=== PATIENT | male | born 1930 | race Caucasian/White ===

== ENCOUNTER → 2017-02-01 | Outpatient (CLI) | payer OTHER, MEDICARE ==
[~2017-02-01] MED LIST: ALENDRONATE SOD70 MG PO; CENTRUM SILVER1 EAC2 PO; CIPRO500 MG PO; IBUPROFEN 800800 MG PO; NORCO 5-325 TA1 EACH PO; PROSCAR 5MG TABL5 MG PO; TERAZOSIN HCL10 MG PO; TOPROL XL50 MG PO; VITAMIN D1000 UNI1 PO
[2017-02-01 14:43] LABS: HEMATOCRIT 34.9 % (42.0-52.0); HEMOGLOBIN 11.8 gm/dL (14.0-18.0); MCH 31.3 pg (26.0-34.0); MCHC 33.9 g/dL (28.0-37.0); MCV 92.3 fL (80.0-100.0); PLATELET COUNT 159 thou/uL (150-400); RBC 3.78 mil/uL (4.50-6.00); RDW 13.2 % (10.5-14.5); WBC 6.9 thou/uL (4.0-11.0)
[2017-02-01 14:44] LABS: MANUAL DIFF YES
[2017-02-01 15:00] LABS: ALBUMIN 3.6 g/dL (3.4-5.0); ALKALINE PHOSPHATASE 40 U/L (46-116); ANION GAP 5 mmol/L (7-16); BUN 22 mg/dL (7-18); CALCIUM 9.6 mg/dL (8.5-10.1); CHLORIDE 104 mmol/L (98-107); CHOLESTEROL 156 mg/dL (<200); CO2 31 mmol/L (21-32); CREATININE 1.2 mg/dL (0.7-1.3); GLUCOSE 98 mg/dL (74-106); HDL CHOLESTEROL 49 mg/dL (>40); LDL CHOLESTEROL 80 mg/dL (<100); POTASSIUM 4.2 mmol/L (3.5-5.1); SGOT 16 U/L (15-37); SGPT 14 U/L (30-65); SODIUM 140 mmol/L (136-145); TC:HDL 3.2 Ratio (Not establshd); TOTAL BILIRUBIN 0.7 mg/dL (<0.1-1.0); TOTAL PROTEIN 7.1 g/dL (6.4-8.2); TRIGLYCERIDE 138 mg/dL (<150); VLDL 28 mg/dL (<40)
[2017-02-01 15:07] LABS: ABSOLUTE NEUTROPHILS 5.4 thou/uL (1.4-8.2); PLATELET ESTIMATE NORMAL; TOTAL CELL COUNT 100
== END ==
LOC: SEN 09:11
PROVIDERS: Emergency Medicine
DX: M81.8 Other osteoporosis without current pathological fracture (principal); I10 Essential (primary) hypertension; M62.81 Muscle weakness (generalized); M25.512 Pain in left shoulder; M25.511 Pain in right shoulder

== ENCOUNTER 2017-10-01 09:09 | Emergency (ER) | payer OTHER, MEDICARE ==
[~2017-10-01] VITALS: Ht 175.3 cm; Wt 81.2 kg
--- NOTE | ~2017-10-01 | EKG ---
[place] [address] [place] [address] ELECTROCARDIOGRAM REPORT Name: ELSA ELLISON KWASI [id number] Admission: 10/01/17 Attend Phys: Discharge: 10/01/17 Date of : 30 Report #: [id number] THIS REPORT FOR: //name// [facility] ED Test Date: 2017-10-01 Test Time: 09:33:40 Pat Name: ELSA ELLISON Department: Room: Gender: M Senior Reservations Agent: DG : 1930 Requested By: Hayde Chopra Order Number: [id number] MD: Pb Daley Measurements Intervals [place] Rate: 77 P: 8 [place]: 152 QRS: 31 QRSD: 135 T: -12 QT: 417 QTc: 472 Interpretive Statements Sinus rhythm Right bundle branch block Baseline wander in lead(s) V5 Compared to ECG 12/26/2008 10:15:07 Right bundle-branch block now present Electronically Signed On 10-02-2017 13:15:10 CDT by Pb Daley [email or web address] <ELECTRONICALLY SIGNED> By: Pb Daley MD, [facility] 10/02/17 1315 Pb Daley MD, [facility] /EPI
[2017-10-01 10:03] LABS: HEMATOCRIT 35.8 % (42.0-52.0); HEMOGLOBIN 12.1 gm/dL (14.0-18.0); MCH 31.1 pg (26.0-34.0); MCHC 33.7 g/dL (28.0-37.0); MCV 92.2 fL (80.0-100.0); RBC 3.89 mil/uL (4.50-6.00); RDW 13.5 % (10.5-14.5)
[2017-10-01 10:12] LABS: URINE BILIRUBIN NEGATIVE (Negative); URINE BLOOD TRACE (Negative); URINE CLARITY CLEAR; URINE COLOR YELLOW; URINE GLUCOSE-RANDOM* NEGATIVE (Negative); URINE KETONES NEGATIVE (Negative); URINE LEUKOCYTES NEGATIVE (Negative); URINE NITRITE NEGATIVE (Negative); URINE PROTEIN (DIPSTICK) NEGATIVE (Negative); URINE UROBILINOGEN 0.2 E.U./dl (0.2-1.0)
[2017-10-01 10:19] LABS: ANION GAP 10 mmol/L (7-16); BUN 22 mg/dL (7-18); CALCIUM 9.9 mg/dL (8.5-10.1); CHLORIDE 100 mmol/L (98-107); CO2 26 mmol/L (21-32); GLUCOSE 102 mg/dL (74-106); POTASSIUM 4.1 mmol/L (3.5-5.1); SODIUM 136 mmol/L (136-145)
[2017-10-01 10:24] LABS: TROPONIN-I < 0.04 ng/mL (<0.06)
[2017-10-01] MEDS ORDERED: HYDROCODONE-AP1 EAC6 PO (11:12)
== END 2017-10-01 11:30 | disposition home or self-care (01) ==
LOC: ER 09:09
PROVIDERS: Physician Assistant
DX: S20.211A Contusion of right front wall of thorax, initial encounter (principal); R10.11 Right upper quadrant pain; R42 Dizziness and giddiness; Z88.0 Allergy status to penicillin; Z88.1 Allergy status to other antibiotic agents; W01.190A Fall on same level from slipping, tripping and stumbling with subsequent striking against furniture, initial encounter; Y93.89 Activity, other specified; Y92.090 Kitchen in other non-institutional residence as the place of occurrence of the external cause; Y99.8 Other external cause status

== ENCOUNTER 2018-02-13 11:29 | Emergency (ER) | payer OTHER, MEDICARE ==
[~2018-02-13] VITALS: Ht 175.3 cm; Wt 81.2 kg
[~2018-02-13 11:29] MED LIST changes: +HYDROCODONE-AP1 EAC6 PO
[2018-02-13 13:01] VITALS: BP 124/61
== END 2018-02-13 13:14 | disposition home or self-care (01) ==
LOC: ER 11:29
DX: S51.011A Laceration without foreign body of right elbow, initial encounter (principal); Z87.891 Personal history of nicotine dependence; Z88.0 Allergy status to penicillin; Z88.1 Allergy status to other antibiotic agents; W01.0XXA Fall on same level from slipping, tripping and stumbling without subsequent striking against object, initial encounter; Y93.89 Activity, other specified; Y92.89 Other specified places as the place of occurrence of the external cause; Y99.8 Other external cause status

== ENCOUNTER 2018-03-02 16:29 | Emergency (ER) | payer OTHER, MEDICARE ==
[~2018-03-02] VITALS: Ht 175.3 cm; Wt 80.7 kg
[2018-03-02] MEDS ORDERED: BACTROBAN CREAM30 G1 TOP (17:05)
[2018-03-02 17:17] VITALS: BP 128/77
== END 2018-03-02 17:18 | disposition home or self-care (01) ==
LOC: ER 16:29
DX: S51.011D Laceration without foreign body of right elbow, subsequent encounter (principal); Z48.01 Encounter for change or removal of surgical wound dressing; Z90.89 Acquired absence of other organs; Z88.0 Allergy status to penicillin; Z88.1 Allergy status to other antibiotic agents; Z87.891 Personal history of nicotine dependence; X58.XXXD Exposure to other specified factors, subsequent encounter

== ENCOUNTER → 2018-04-04 | Outpatient (CLI) | payer OTHER, MEDICARE ==
[~2018-04-04] VITALS: Ht 165.1 cm; Wt 78.5 kg
[~2018-04-04] MED LIST changes: +BACTROBAN CREAM30 G1 TOP
[2018-04-04 13:24] VITALS: BP 125/66
[2018-04-04 15:32] LABS: URINE BILIRUBIN NEGATIVE (Negative); URINE BLOOD 3+ (Negative); URINE CLARITY CLOUDY; URINE COLOR YELLOW; URINE GLUCOSE-RANDOM* NEGATIVE (Negative); URINE KETONES NEGATIVE (Negative); URINE LEUKOCYTES-REFLEX 2+ (Negative); URINE NITRITE-REFLEX NEGATIVE (Negative); URINE PROTEIN (DIPSTICK) 2+ (Negative); URINE SPECIFIC GRAVITY 1.025 (1.005-1.035); URINE UROBILINOGEN 0.2 E.U./dl (0.2-1.0)
[2018-04-04 15:36] LABS: ABSOLUTE NEUTROPHILS 6.3 thou/uL (1.4-8.2); BASOPHILS 0.5 % (0.0-2.0); HEMATOCRIT 36.3 % (42.0-52.0); HEMOGLOBIN 12.3 gm/dL (14.0-18.0); LYMPHOCYTES 9.6 % (24.0-44.0); MCH 30.8 pg (26.0-34.0); MCHC 33.9 g/dL (28.0-37.0); MCV 90.9 fL (80.0-100.0); MONOCYTES 11.5 % (1.0-8.0); PLATELET COUNT 206 thou/uL (150-400); POLYS 77.4 % (36.0-66.0); RDW 13.5 % (10.5-14.5); WBC 8.2 thou/uL (4.0-11.0)
[2018-04-04 15:38] LABS: CASTS None Seen /LPF (None Seen); CRYSTALS None Seen /LPF (None Seen); SQUAMOUS None Seen /LPF (0-3); URINE WBC-REFLEX >25 Many /HPF (0-5)
[2018-04-04 15:39] LABS: URINE RBC 3-10 Few /HPF (0-2)
[2018-04-04 15:46] LABS: ALBUMIN 3.2 g/dL (3.4-5.0); ANION GAP 5 mmol/L (7-16); BUN 24 mg/dL (7-18); CALCIUM 9.2 mg/dL (8.5-10.1); CHLORIDE 100 mmol/L (98-107); CHOLESTEROL 148 mg/dL (<200); CO2 29 mmol/L (21-32); CREATININE 1.1 mg/dL (0.7-1.3); GLUCOSE 129 mg/dL (74-106); HDL CHOLESTEROL 56 mg/dL (>40); LDL CHOLESTEROL 77 mg/dL (<100); POTASSIUM 4.2 mmol/L (3.5-5.1); SGOT 20 U/L (15-37); SGPT 23 U/L (30-65); SODIUM 134 mmol/L (136-145); TC:HDL 2.6 Ratio (Not establshd); TOTAL BILIRUBIN 0.4 mg/dL (<0.1-1.0); TRIGLYCERIDE 77 mg/dL (<150); VLDL 15 mg/dL (<40)
[2018-04-04 15:50] LABS: SERUM ASSESSMENT Clear
== END ==
LOC: SEN 11:46
PROVIDERS: Emergency Medicine
DX: R30.0 Dysuria (principal); M62.81 Muscle weakness (generalized); R29.6 Repeated falls; R53.83 Other fatigue; R35.0 Frequency of micturition; R31.9 Hematuria, unspecified; R97.20 Elevated prostate specific antigen [PSA]; Z85.46 Personal history of malignant neoplasm of prostate; Z87.891 Personal history of nicotine dependence; Z79.899 Other long term (current) drug therapy

== ENCOUNTER → 2018-04-25 | Outpatient (CLI) | payer OTHER, MEDICARE ==
[~2018-04-25] VITALS: Ht 165.1 cm; Wt 79.5 kg
[2018-04-25 13:43] VITALS: BP 125/62
== END ==
LOC: CAT 08:51 → SEN 08:51
DX: R51 Headache (principal); Z91.81 History of falling

== ENCOUNTER 2018-07-20 18:23 | Inpatient (IN) | payer OTHER, MEDICARE ==
[~2018-07-20] VITALS: Ht 175.3 cm; Wt 79.5 kg
--- NOTE | ~2018-07-20 | HC ---
[facility] [place] [address] CONSULTATION Name: SCOTELSA VILLALPANDO Room #: 353-P [facility] IN .R.#: [id number] Admission: 07/22/18 Attend Phys: Rony Zeng MD Discharge: Date of : 30 Report #: [id number] THIS REPORT FOR: //name// CC: Rony Zeng Dalton Akkulugari DATE OF SERVICE: 07/25/2018 HISTORY OF PRESENT ILLNESS: The patient is an 88-year-old white male, who was admitted having a syncopal episode at home. He was initially unconscious, had right upper and right lower extremity weakness, and had emesis. CT of the head was negative. He had a right upper lobe infiltrate. He was diagnosed with severe sepsis. He was diagnosed with pneumonia, possible aspiration. He has had improvement as far as right upper and right lower extremity movement. He is being followed by Pulmonary Medicine as well as Infectious Disease and Geriatrics. He has had problems with urinary retention and has a Crawford catheter placed. We are seeing him in rehabilitation medicine consultation. He does have significant dysphagia and is on honey thickened liquid diet with mechanical soft. PAST MEDICAL HISTORY: Includes rotator cuff surgery bilaterally, TURP x 2, cataract surgery, stapedectomy, left ear; rheumatic fever as a child, aortic aneurysm, right knee surgery, hypertension, GERD, prostate CA, and bladder CA. MEDICATIONS: Please see the full medication listing. This includes vitamins, herbals, and supplements. ALLERGIES: THE PATIENT IS ALLERGIC TO PENICILLIN. HABITS: Tobacco: Former smoker 1 pack per day cigarettes, quit greater than a year ago. Alcohol: There is note of some past usage. SOCIAL HISTORY: He lives with his , in house, no steps in, 12 inside. Premorbid cane ambulator. is there and involved and there is an involved daughter, who lives in [place]. REVIEW OF SYSTEMS: No complaints of chest pain, shortness of breath, abdominal discomfort, would like to be off the O2 when possible. He notes he is moving the right arm and right leg better without focal weakness. He is right-handed. He denies any focal extremity pain complaints. He did have some urinary frequency premorbidly per the . PHYSICAL EXAMINATION: GENERAL: The patient is an 88-year-old white male in no obvious distress. He is very pleasant, a little hard of hearing, but quite alert, appropriate. HEENT: Appeared to be benign. [address] [address] CONSULTATION Name: ELSA ELLISON Room #: 353-P [facility] IN .R.#: [id number] Admission: 07/22/18 Attend Phys: Rony Zeng MD Discharge: Date of : 30 Report #: [id number] NEUROLOGIC: Cranial nerves were grossly intact. He is on nasal prong O2, currently on 2 liters. There is some latency to his responses. Functional range of motion of both upper and lower extremities. Strength appeared to be symmetric, I would grade it at a 4 to 4-/5. DTRs are trace to 1. He does have the indwelling Crawford catheter. He has improved as far as basic functional mobility and now is mod assist, sit to stand and ambulated 200 feet, min assist with a front-wheeled walker. ASSESSMENT: The patient is an 88-year-old white male with the following problem list: 1. Initial unconsciousness with right upper and right lower extremity weakness. 2. Significant dysphagia, currently on honey thickened liquid. 3. Severe sepsis. 4. Possible aspiration pneumonia. 5. Supraventricular tachycardia, was given IV Lopressor. 6. Acute respiratory failure with hypoxia. 7. Question of syncope. 8. Hypertension. 9. Urinary retention with indwelling Crawford catheter. 10. Past history of bladder cancer and prostate cancer with prior transurethral resection of the prostate x 2. PLAN: The patient is a candidate for an acute in-hospital inpatient rehabilitation stay. The patient and appear amenable. Complained and transferred to the acute in-hospital inpatient rehabilitation alvares when medically cleared. By: [id number] Jeff Stevens MD /[facility]
[2018-07-20 18:24] VITALS: BP 139/61
[2018-07-20 18:46] LABS: HEMATOCRIT 38.4 % (42.0-52.0); HEMOGLOBIN 12.8 gm/dL (14.0-18.0); MCH 30.2 pg (26.0-34.0); MCHC 33.4 g/dL (28.0-37.0); MCV 90.5 fL (80.0-100.0); RBC 4.24 mil/uL (4.50-6.00); RDW 14.2 % (10.5-14.5); WBC 13.5 thou/uL (4.0-11.0)
[2018-07-20 18:53] LABS: ANION GAP 9 mmol/L (7-16); BUN 18 mg/dL (7-18); CALCIUM 9.5 mg/dL (8.5-10.1); CHLORIDE 99 mmol/L (98-107); CO2 28 mmol/L (21-32); CREATININE 1.1 mg/dL (0.7-1.3); GLUCOSE 125 mg/dL (74-106); POTASSIUM 4.2 mmol/L (3.5-5.1); SODIUM 136 mmol/L (136-145)
[2018-07-20 18:57] LABS: APTT 23.3 Seconds (24.5-32.8); INR 1.1; PROTIME 11.2 Seconds (9.3-11.4)
[2018-07-20 19:02] LABS: ALBUMIN 3.6 g/dL (3.4-5.0); DIRECT BILIRUBIN 0.2 mg/dL (<0.1-0.3); LIPASE 61 U/L (73-393); SGOT 16 U/L (15-37); SGPT 14 U/L (30-65); TOTAL BILIRUBIN 0.7 mg/dL (<0.1-1.0); TOTAL PROTEIN 7.3 g/dL (6.4-8.2); TROPONIN-I <0.06 ng/mL (<0.06)
[2018-07-20 20:57] VITALS: BP 132/63
[2018-07-20 21:27] VITALS: BP 112/65
[2018-07-20 21:55] VITALS: BP 107/52
[2018-07-21] VITALS: BP 111/60
[2018-07-21 01:39] LABS: URINE BILIRUBIN NEGATIVE (Negative); URINE BLOOD TRACE (Negative); URINE CLARITY CLEAR; URINE COLOR YELLOW; URINE GLUCOSE-RANDOM* NEGATIVE (Negative); URINE KETONES NEGATIVE (Negative); URINE NITRITE-REFLEX NEGATIVE (Negative); URINE PROTEIN (DIPSTICK) NEGATIVE (Negative); URINE SPECIFIC GRAVITY 1.015 (1.005-1.035); URINE UROBILINOGEN 0.2 E.U./dl (0.2-1.0)
[2018-07-21 01:40] LABS: URINE LEUKOCYTES-REFLEX NEGATIVE (Negative)
--- NOTE | 2018-07-21 01:41 | NUR ---
PT STATES HE DOES NOT TAKE ANY HOME MEDICATIONS. HE STATES HE STOPPED TAKING HIS BP MEDICATIONS BUT HAS NOT INFORMED HIS PCP. UPDATED ANGIOGRAPHER TORNADO CHASER REGARDING HOME MEDS.
--- NOTE | 2018-07-21 03:22 | NUR ---
RECEIVED REPORT FROM ER NURSE. PT ADMITTED TO ROOM 353. ADMISSION HX AND ASSESSMENT COMPLETED. PT IS ABLE TO ANSWER ORIENTATION QUESTIONS, BUT HAS PERIODS OF FORGETFULNESS DURING THE NIGHT. DENIES ANY N/V. DENIES ANY PAIN. SOA W/ EXERTION. VSS. FALL PRECAUTIONS IN PLACE. POC DISCUSSED WITH PT. PROGRESSING SLOWLY TOWARD POC GOALS. WILL CONTINUE TO MONITOR FURTHER.
[2018-07-21 04:15] VITALS: BP 106/59
--- NOTE | 2018-07-21 07:22 | NUR ---
PT HAVING DIFFICULTY VOIDING. BLADDER SCANNED, >400ML IN BLADDER. NOTIFIED GEAR KEEPER DISK RECOATER. ORDER RECEIVED TO STRAIGHT CATH X1. STRAIGHT CATHED AND EMPTIED 545ML FROM BLADDER. UPDATED DAY SHIFT RN.
[2018-07-21 07:49] VITALS: BP 105/50
[2018-07-21 11:46] VITALS: BP 108/53
[2018-07-21 16:00] VITALS: BP 117/56
[2018-07-21 19:45] VITALS: BP 128/55
--- NOTE | 2018-07-21 19:51 | NUR ---
care of pt assumed this am @ 0700. pt received a straight cath per noc rn this am. pt aox4, forgetful, needing many reminders about conversations he had w/ staff hours ago. pt suprised by need to be hospitalized as he states he feels fine and would like to go home tomorrow. pt encourage to increase activity today, so pt walked about nrsg station before breakfast and lunch today w/o oxygen, w/o dyspnea and w/ a steady, balanced and coordinated gait. pt sat up in his chair for all clear liquids meals today. pt has denied soa today. vss. pt visited by his , daughter and members from their sabianist. pt noted to be point hope ira, but uses one hearing aid to solve that issue. pt incontinent of stool today, but taken to the [facility] to have a stool on the toliet. pt still unable to void per urinaly late this afternoon, after receiving ivf and po liquids, bladder scanned w/ ~350 cc. ayala cathater placed per dr. idamond's order. pt relieved to know that he will not have to have another cathater inserted tonight and that he can just sleep through the night.
--- NOTE | 2018-07-21 22:13 | EKG ---
[address] [address] ELECTROCARDIOGRAM REPORT Name: ELSA ELLISON KWASI Room #: 353-[facility] M.R.#: [id number] Admission: 07/20/18 Attend Phys: Yesy Flannery Discharge: Date of : 30 Report #: [id number] THIS REPORT FOR: //name// [facility] ED Test Date: 2018-07-20 Test Time: 18:33:24 Pat Name: ELSA ELLISON Department: Room: [facility] Gender: M Protector Plate Attacher: LUCERO : 1930 Requested By: Elsa Mccollum Order Number: [id number] MD: Mickey Cotto Measurements Intervals [place] Rate: 94 P: 15 [place]: 142 QRS: 32 QRSD: 127 T: -16 QT: 363 QTc: 454 Interpretive Statements Sinus rhythm with frequent pacs Right bundle branch block Baseline wander in lead(s) II Compared to ECG 10/01/2017 09:33:40 Sinus rhythm no longer present Electronically Signed On 07-21-2018 22:12:54 STRIPPER AND PRINTER by Mickey Cotto [email or web address] <ELECTRONICALLY SIGNED> By: Mickey Cotto MD 07/21/18 2212 32 32 Mickey Cotto MD /EPI
--- NOTE | 2018-07-21 22:14 | EKG ---
[address] [address] ELECTROCARDIOGRAM REPORT Name: ELSA ELLISON KWASI Room #: 353-[facility] M.R.#: [id number] Admission: 07/20/18 Attend Phys: Yesy Flannery Discharge: Date of : 30 Report #: [id number] THIS REPORT FOR: //name// [facility] ED Test Date: 2018-07-20 Test Time: 20:08:56 Pat Name: ELSA ELLISON Department: Room: 353 Gender: M Customer Advocate: Michael QUINONES : 1930 Requested By: Elsa Mccollum Order Number: [id number] MD: Mickey Cotto Measurements Intervals [place] Rate: 123 P: 45 [place]: 147 QRS: 34 QRSD: 117 T: -71 QT: 330 QTc: 472 Interpretive Statements Sinus tachycardia Multiple premature atrial complexes and atrial tachycardia Right bundle branch block Repolarization abnormality, prob rate related Compared to ECG 10/01/2017 09:33:40 Early repolarization now present Sinus rhythm no longer present Electronically Signed On 07-21-2018 22:13:56 JEWELRY MANAGER by Mickey Cotto [email or web address] <ELECTRONICALLY SIGNED> By: Mickey Cotto MD 07/21/18 2213 07 07 Mickey Cotto MD /EPI
--- NOTE | 2018-07-22 03:21 | NUR ---
ASSUMED PT CARE AROUND 1900. PT BECOMES MORE FORGETFUL AND HAS PERIODS OF CONFUSION AT NIGHT. RESTLESS IN THE BED AT TIMES, PULLING AT LINES. ANAI TO DD. VSS. PLACED ON 2-3L NC DURING THE NIGHT, DUE TO O2 SATS DROPPING WHILE HE WAS SLEEPING. DENIES ANY PAIN OR SOA. FALL PRECAUTIONS IN PLACE. PROGRESSING SLOWLY TOWARD POC GOALS. WILL CONTINUE TO MONITOR FURTHER.
[2018-07-22 04:07] VITALS: BP 111/46
[2018-07-22 05:22] LABS: ABSOLUTE NEUTROPHILS 10.1 thou/uL (1.4-8.2); BASOPHILS 0.2 % (0.0-2.0); EOSINOPHILS 0.3 % (0.0-3.0); LYMPHOCYTES 5.1 % (24.0-44.0); MCH 30.2 pg (26.0-34.0); MCHC 33.5 g/dL (28.0-37.0); MCV 90.1 fL (80.0-100.0); PLATELET COUNT 147 thou/uL (150-400); POLYS 86.4 % (36.0-66.0); RBC 3.33 mil/uL (4.50-6.00); RDW 14.4 % (10.5-14.5); WBC 11.7 thou/uL (4.0-11.0)
[2018-07-22 05:28] LABS: HEMOGLOBIN 10.1 gm/dL (14.0-18.0)
[2018-07-22 05:34] LABS: CALCIUM 8.4 mg/dL (8.5-10.1); CREATININE 0.9 mg/dL (0.7-1.3); POTASSIUM 3.7 mmol/L (3.5-5.1)
[2018-07-22 07:34] VITALS: BP 113/55
--- NOTE | 2018-07-22 10:39 | NUR ---
PT ADMITTED RELATED WEAKNESS, PNEUMONIA. CM REVIEWED CHART AND SPOKE WITH CARE TEAM. CM MET WITH PT AT BEDSIDE THIS DAY. PT IS A&O X4 CM ROLE IBTRODUCED. PT INDICATED HE LIVES IN A RANCH STYLE HOUSE WITH HIS SPOUSE WITH 2 STEPS TO ENTER AND NO STEPS INSIDE. 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 PT INDICATED NO HH HX. PT INDICATED HE HAD SEEN DR MIRANDA ONCE BUT [facility] PT STATED HE PLANS TO RETURN HOME ONCE MEDICALLY STABLE. CM TO FOLLOW INDICATED WITH DC PLANNING.
[2018-07-22 11:49] VITALS: BP 102/60
[2018-07-22 16:58] VITALS: BP 130/59
[2018-07-22 19:45] VITALS: BP 132/64
[2018-07-23 04:38] VITALS: BP 129/65
--- NOTE | 2018-07-23 04:53 | NUR ---
PATIENT IS ALERT AND ORIENTED. PATIENT IS ON 2L NC. PATIENT WANT TO WALK BUT IT WAS REALLY DIFFICULT TO EVEN GET TO THE EDGE OF THE BED. PATIENT DID NOT AMBULATE THIS SHIFT BUT STILL WANTS TO. PATIENT IS [place]. PATIENT DENIES PAIN OR NAUSEA. PATIENT IS TIME ONE TO TWO ASSIST WITH A WALKER, GAIT BELT AND OXYGEN. PATIENT LBM WAS THE 31ST. PATIENT IS A FIB. PATIENT IS SOMETIME TACHICARDIC. PATIENT IS HONEY THICK LIQUIDS AND HEART HEALTHY MACHANICAL GROUND DIET. PATIENT HAS A OSPINA DUE TO RETENTION. PATIENT IS RESTING COMFORTABLEY IN BED. WCM. PATIENT IS PROGRESSING TO GOALS.
[2018-07-23 05:48] LABS: BASOPHILS 0.3 % (0.0-2.0); EOSINOPHILS 0.9 % (0.0-3.0); HEMATOCRIT 29.9 % (42.0-52.0); HEMOGLOBIN 10.3 gm/dL (14.0-18.0); LYMPHOCYTES 5.4 % (24.0-44.0); MCH 30.8 pg (26.0-34.0); MCHC 34.3 g/dL (28.0-37.0); MCV 89.6 fL (80.0-100.0); MONOCYTES 8.3 % (1.0-8.0); PLATELET COUNT 149 thou/uL (150-400); POLYS 85.1 % (36.0-66.0); RBC 3.33 mil/uL (4.50-6.00); RDW 14.2 % (10.5-14.5); WBC 9.4 thou/uL (4.0-11.0)
[2018-07-23 06:02] LABS: CALCIUM 8.5 mg/dL (8.5-10.1); CREATININE 0.9 mg/dL (0.7-1.3); POTASSIUM 3.7 mmol/L (3.5-5.1)
[2018-07-23 07:51] VITALS: BP 123/66
[2018-07-23 11:07] VITALS: BP 98/42
[2018-07-23 15:31] VITALS: BP 120/61
--- NOTE | 2018-07-23 17:52 | NUR ---
PT IS ALERT AND ORIENTED X4. PLEASANT. LUNGS ARE CLEAR TO DIMINISHED. UP TO CHAIR TODAY. AT BEDSIDE FOR SUPPORT. TOLERATING MECH SOFT AND THICKEN LIQUIDS. ABDOMEN IS ROUND. ACTIVE BOWEL SOUNDS X4 QUADRANTS. NSR ON THE CRYPTOLOGIC TECHNICIAN. ASSSIST X1 FOR AMBULATION WITH NURSING SUPPORT. OSPINA TO DD WITH NEEL URINE PRESENT. DENIES ANY PAIN. WILL CONTINUE TO ASSESS AND MONITOR PER NURSING CALL LIGHT WITHIN REACH IF NEEDS ASSISTANCE
[2018-07-23 20:20] VITALS: BP 126/84
[2018-07-24 04:20] VITALS: BP 119/78
--- NOTE | 2018-07-24 05:01 | NUR ---
ASSUMED PT CARE AROUND 0. A&OX4, FORGETFUL. PT SLEPT MOST OF THE NIGHT. RESP EVEN AND UNLABORED. OSPINA TO DD WITH GOOD URINE OUTPUT. IVF INFUSING ORDERED. VSS. AFEBRILE. GIVEN IV LOPRESSOR ONCE PER TELECOMMUNICATIONS SPECIALIST ORDER FOR TACHYCARDIA. HR IMPROVED. FALL PRECAUTIONS IN PLACE. PROGRESSING SLOWLY TOWARD POC GOALS. WILL CONTINUE TO MONITOR FURTHER.
[2018-07-24 07:45] VITALS: BP 127/74
--- NOTE | 2018-07-24 09:29 | NUR ---
PHYSICIAN CALLS: PT HR >130 FOR ABOUT 18 MIN, THEN ALERTED HE'S IN SVT STARTING AT [address] GRAHAM TWICE FOR ALERT, MEDS, CARDIOLOGY CONSULT, STATE EKG BEING DONE, PT ASYMPTOMATIC OTHER THAN PAIN IN HIS R KNEE, DID VALSALVA MANUEVERS WHICH ONLY BROUGHT HR DOWN TO 120-130S, PT DOES BECOME HIGHLY ANXIOUS IF B/P TAKEN AGAIN OR HIS HR IS DISCUSSED. ASSURED HIM HE'S IN GOOD HANDS HERE WITH HEART BEING MONITORED. AWAITING FURTHER ORDERS
--- NOTE | 2018-07-24 09:31 | NUR ---
HR 169 YESTERDAY REPORTS OFIV LOPRESSOR GIVEN. CALLED BACK AND HE ASKED FOR ME TO RETURN CALL SHORTLY
[2018-07-24 11:52] VITALS: BP 80/40
--- NOTE | 2018-07-24 13:20 | EKG ---
[address] [place] [address] ELECTROCARDIOGRAM REPORT Name: ELSA ELLISON KWASI Room #: 353-P [facility] IN M.R.#: [id number] Admission: 07/22/18 Attend Phys: Rony Zeng MD Discharge: Date of : 30 Report #: [id number] THIS REPORT FOR: //name// [facility] Test Date: 2018-07-24 Test Time: 09:32:05 Pat Name: ELSA ELLISON Department: Room: 353 P Gender: M Circuit Court Judge: Irasema DE JESUS : 1930 Requested By: Yesy Flannery Order Number: [id number] MD: Mickey Cotto Measurements Intervals Lane Rate: 128 P: [place]: QRS: 45 QRSD: 129 T: -47 QT: 316 QTc: 461 Interpretive Statements Atrial fibrillation Right bundle branch block Borderline ST depression, lateral leads Compared to ECG 07/20/2018 20:08:56 ST (T wave) deviation now present Sinus tachycardia no longer present Atrial premature complex(es) no longer present Early repolarization no longer present Electronically Signed On 07-24-2018 13:20:06 SUPERVISOR LUMP ROOM by Mickey Cotto [email or web address] <ELECTRONICALLY SIGNED> By: Mickey Cotto MD 07/24/18 1320 Mickey Cotto MD /EPI
--- NOTE | 2018-07-24 13:42 | NUR ---
CARE TEAM IS RECOMMENDING POST ACUTE CARE STAY. CM MET WITH PT, SPOUSE, AND DTR AT BEDSIDE THIS DAY AND PROVIDED SNF LIST. SOUSE IS TO VISIT [facility] AND TOUR. CM INDICATED THAT POSSIBLE DC TOMORROW. CM TO FOLLOW UP WITH PT, SPOUSE, AND DTR REGARDING PREFERENCE OF FACILITIES.
--- NOTE | 2018-07-24 15:02 | NUR ---
pt and spouse also asked tht referral be sent to [facility] for review. cm sent referral
[2018-07-24 16:05] VITALS: BP 96/43
[2018-07-24 20:20] VITALS: BP 122/58
--- NOTE | 2018-07-25 03:20 | NUR ---
ASSUMED PT CARE AROUND 1900. A&OX4, FORGETFUL. C/O RT KNEE PAIN. TYLENOL GIVEN. PT SAT UP IN CHAIR EARLIER IN THE SHIFT. TOLERATED WELL. ONCE TRANSFERED BACK TO BED, PT SLEPT MOST OF THE NIGHT. RESP EVEN AND UNLABORED. VSS. OSPINA TO DD WITH GOOD URINE OUTPUT. FALL PRECAUTIONS IN PLACE. PROGRESSING TOWARD POC GOALS. WILL CONTINUE TO MONITOR FURTHER.
[2018-07-25 04:30] VITALS: BP 134/84
[2018-07-25 07:16] VITALS: BP 94/73
[2018-07-25 11:13] VITALS: BP 103/49
--- NOTE | 2018-07-25 13:36 | NUR ---
DISCHARGE PLANNING. POST ACUTE CARE RECOMMENDED AT DISCHARGE. REFERRAL FAXED TO [facility] FOR DC NEEDS. CALL PLACED TO FATUMA [facility] TO NOTIFY OF PATIENTS DC NEEDS AND ANTICIPATED DISCHARGE FOR TOMORROW. FATUMA TO REVIEW AND NOTIFY ONCE COMPLETE. UNIT CM/SW AWARE. FOLLOWING TO ASSIST.
--- NOTE | 2018-07-25 13:44 | NUR ---
CM FOLLOWED UP WITH PT AND SPOUSE TODAY TO SEE IF THEY HAD [facility]. SPOUSE REQUESTED 5N CONSULT AND THAT REFERRAL BE SENT TO [facility] OP IF NOT APPROPRIATE FOR 5N. DC STEERSMAN TO FAX REFERRAL TO [facility]. CONSULT WAS SENTERED FOR 5N. CM TO FOLLOW INDICATED WITH DC PLANNING.
[2018-07-25 15:20] VITALS: BP 97/53
--- NOTE | 2018-07-25 15:30 | NUR ---
PT WEAK..PLANS TO HAVE 5N EVAL AND HOPEFULLY TX THERE TOMORROW..ENCOURAGED TO SIT IN CHAIR...
--- NOTE | 2018-07-25 18:09 | NUR ---
PATIENT SEEN BY DR. ROTH THIS DATE. PATIENT IS A GOOD REHAB CANDIDATE. PLAN FOR ACUTE REHAB ADMISSION 07/26/17 IF PATIENT IS MEDICALLY STABLE AND READY FOR DISCHARGE FROM ACUTE MEDICAL CARE. THANK YOU FOR THIS REFERRAL.
[2018-07-25 19:05] VITALS: BP 120/52
[2018-07-25 23:34] VITALS: BP 129/59
--- NOTE | 2018-07-26 03:02 | NUR ---
patient is alert and oriented. patient is [place]. patient can be forgetful. patient is anxious at times. patient is 1-2 assist with walker. patient is afib to [facility] c pacs on tele. patient is on honey thick liquids and tolerates well. patient has a ayala. lbm was the 2nd. patient is pending transfer to [address] [place] [address]. patients heart rate has improved with the metoprolol. patient is on 2l nc. patient is resting comfortabley in bed. wcm. patient is progressing to goals.
[2018-07-26 03:51] VITALS: BP 136/82
[2018-07-26 05:40] LABS: ABSOLUTE NEUTROPHILS 6.4 thou/uL (1.4-8.2); BASOPHILS 0.4 % (0.0-2.0); EOSINOPHILS 2.3 % (0.0-3.0); HEMATOCRIT 30.7 % (42.0-52.0); HEMOGLOBIN 10.5 gm/dL (14.0-18.0); LYMPHOCYTES 8.8 % (24.0-44.0); MCH 30.6 pg (26.0-34.0); MCHC 34.1 g/dL (28.0-37.0); MCV 89.5 fL (80.0-100.0); MONOCYTES 10.8 % (1.0-8.0); PLATELET COUNT 197 thou/uL (150-400); POLYS 77.7 % (36.0-66.0); RBC 3.43 mil/uL (4.50-6.00); RDW 14.3 % (10.5-14.5); WBC 8.2 thou/uL (4.0-11.0)
[2018-07-26 07:32] VITALS: BP 144/69
[2018-07-26] MEDS ORDERED: LEVAQUIN 500 M500 M2 PO (08:55)
[2018-07-26] MEDS ORDERED: FLOMAX0.4 MG PO (08:55)
[2018-07-26] MEDS ORDERED: MUCINEX600 MG PO (08:56)
--- NOTE | 2018-07-26 09:00 | NUR ---
[facility] INDICATED THAT THEY ARE ABLE TO ACCEPT PT FOR ADMISSION THIS DAY. [facility] ALSO INDICATED THEY WOULD BE ABLE TO ACCEPT PT IF 5N WASN'T AN OPTION. CM TO INFORM PT AND SPOUSE AND FOLLOW INDICATED WITH DC PLANNING.
--- NOTE | 2018-07-26 09:47 | NUR ---
5 N CONSULT RECEIVED 07/25/[address] ROTH ASSESSED PATIENT ON 07/25/18. PATIENT DEMONSTRATES RIGHT UE/RIGHT LE WEAKNES, DYSPHAGIA, AND MEDICAL COMPLEXITY. SEE DR. ROTH'S CONSULT FOR DETAILS. BUDGET MANAGER MEETS WITH PATIENT THIS DATE TO DISCUSS RECOMMENDATIONS/REQUIREMENTS FOR AN ACUTE INPATIENT REHAB UNIT STAY. PATIENT PROVIDED WITH AN ORIENTATION BROCHURE. PATIENT IS AGREEABLE TO [address] [place] [address] STAY. PATIENT REPORTS RESIDING IN A RANCH STYLE HOME WITH HIS SPOUSE. STATES HE WAS INDEPENDENT WITH BASIC ADL'S AND MODIFIED INDEPENDENT WITH A QUAD CANE AND OCCASIONALLY WITH USE OF A WALKER FOR HOUSEHOLD AND SHORT COMMUNITY DISTANCES. REPORTS HE SHARES IADL'S WITH HIS SPOUSE. 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 PATIENT REPORTS HIS GOAL IS TO GET UP AND GET WALKING, TO BE ABLE TO GET THE MAIL AND SORT THROUGH IT. STATES HE DESIRES TO RETURN HOME WITH HIS SPOUSE. ANTICIPATE PATIENT WILL ADMIT TO [address] [place] [address] LATER THIS DATE. THANK YOU FOR THE REFERRAL.
--- NOTE | 2018-07-26 11:01 | NUR ---
PT WAS ACEPTED TO 5N THIS DAY. CM NOTIFIED SPOUSE AND DTR.
--- NOTE | 2018-07-28 22:00 | EKG ---
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 : 1930 Requested By: Johanna Mcintyre Order Number: [id number] MD: Mickey Cotto Measurements Intervals [place] Rate: 124 P: 77 KS: 136 QRS: 38 QRSD: 128 T: 2 QT: 325 QTc: 467 Interpretive Statements Sinus tachycardia Multiple PACs Right bundle branch block Compared to ECG 07/24/2018 09:32:05 Atrial fibrillation no longer present ST (T wave) deviation no longer present Electronically Signed On 07-28-2018 22:00:33 KNIT TUBING DYER by Mickey Cotto [email or web address] <ELECTRONICALLY SIGNED> By: Mickey Cotto MD 07/28/182199 20 20 Mickey Cotto MD /EPI
--- NOTE | 2018-07-29 19:21 | HC ---
[facility] [place] [address] CONSULTATION Name: SCOTELSA VILLALPANDO Room #: 353-P [facility] IN M.R.#: [id number] Admission: 07/22/18 Attend Phys: Rony Zeng MD Discharge: 07/26/18 Date of : 30 Report #: [id number] THIS REPORT FOR: //name// [facility] REFERRAL PHYSICIAN: Dr. Flannery. REASON FOR REFERRAL: Dyspnea, possible pneumonia. HISTORY OF PRESENT ILLNESS: The patient is an 88-year-old gentleman who was brought to the Emergency Room with a syncopal episode. Has concerns for possible pneumonia. A pulmonary consultation was requested. According to the family, they found him with spillage of liquids around his mouth. Then, he slumped over in his easy chair. There were concerns for emesis, possible nausea, vomiting, although the family denies. The family knows the patient had complained of abdominal discomfort a few days ago. When he was taken to the Emergency Room, he did have a projectile vomiting. He had a low-grade fever of 100.2 degrees Fahrenheit. Chest x-ray performed shows questionable right lower lung field infiltrates. Currently, he is awake, alert, in no apparent distress. Denies any dyspnea, chest pain, productive cough. PAST MEDICAL HISTORY: Notable for aortic aneurysm, rheumatic fever as a child, hypertension, gastroesophageal reflux disease, prostate cancer and bladder cancer. PAST SURGICAL HISTORY: Rotator cuff surgery, cataract surgery, TURP, left middle ear surgery and right knee surgery. ALLERGIES: TO PENICILLIN, WHICH REACTION NOT SPECIFIED INCLUDING TETRACYCLINE, REACTIONS NOT SPECIFIED. HOME MEDICATIONS: Include ibuprofen, Tylenol, hydrocodone, recent course of Cipro, Fosamax, Proscar, Toprol XL, Centrum Silver and vitamin D. FAMILY HISTORY: Noncontributory. SOCIAL HISTORY: Has smoked in the past for over 40 years, quit 20 years ago. He has drank in the past, but quit years ago. REVIEW OF SYSTEMS: As mentioned above, otherwise 10-point system review negative. [facility] [address] [place] [address] CONSULTATION Name: ELSA ELLISON Room #: 353-P [facility] IN M.R.#: [id number] Admission: 07/22/18 Attend Phys: Rony Zeng MD Discharge: 07/26/18 Date of : 30 Report #: [id number] PHYSICAL EXAMINATION: GENERAL: He is awake, alert, in no apparent distress. VITAL SIGNS: Temperature is 98 degrees Fahrenheit, pulse is 60, respiratory rate is 18, blood pressure 108/53 mmHg and saturation 93%. HEENT: Normocephalic, atraumatic. NECK: Supple, without any lymphadenopathy or thyromegaly. CHEST: Breath sounds are fair bilaterally with a few scattered crackles in the bases, but no wheezes. CARDIOVASCULAR: Normal S1, S2. There are no murmurs or gallop. There is no JVD. There is no carotid bruit. Pulses 2+/4+ bilaterally. ABDOMEN: Soft, nontender, no organomegaly or masses felt. GENITOURINARY: Deferred. RECTAL: Deferred. EXTREMITIES: There is no edema, cyanosis or clubbing. LABORATORY DATA: Portable chest x-ray again shows questionable right perihilar infiltrates, possible mild left lower lobe infiltrates. Left hemidiaphragm is elevated. Lung volumes are decreased bilaterally. CT head was negative for any acute ischemic changes. Procalcitonin level is 0.8. Lactic acid is 1.1. Abdominal ultrasound was a limited exam. Otherwise, no significant findings. Electrolytes are normal. Liver enzymes are grossly unremarkable. WBC 13,500. Albumin 3.6. IMPRESSION: 1. Near syncopal episode in this 88-year-old white male with an apparent history of nausea and vomiting. Chest x-ray is grossly unremarkable, but there is some suggestion of possible right perihilar infiltrates, perhaps left lower lobe infiltrates. Possible aspiration pneumonia is considered. Note the patient is febrile. Alternatively, viral syndrome is also considered. 2. Syncopal episode. 3. Recent abdominal discomfort. We will defer workup to the primary team. 4. Hypertension. 5. History of prostate cancer, bladder cancer, status post transurethral resection of prostate. 6. History of aortic aneurysm. 7. Rheumatic fever as a child. 8. Gastroesophageal reflux disease. RECOMMENDATION: I think it is reasonable to continue broad spectrum antibiotics to cover possible aspiration pneumonia. Follow up chest x-ray. DVT and GI prophylaxis is recommended. Would also recommend follow up GI symptoms, may need further workup. DVT and GI prophylaxis is indicated. [address] [address] CONSULTATION Name: ELSA ELLISON Room #: 353-P [facility] IN ..#: [id number] Admission: 07/22/18 Attend Phys: Rony Zeng MD Discharge: 07/26/18 Date of : 30 Report #: [id number] Thank you for the consultation. <ELECTRONICALLY SIGNED> By: Jac Valdez MD 07/29/18 [id number] Jac Valdez MD /nt
--- NOTE | 2018-07-30 10:49 | HC ---
[facility] [address] CONSULTATION Name: ELSA ELLISON Room #: 353-P [facility] IN M.R.#: [id number] Admission: 07/22/18 Attend Phys: Rony Zeng MD Discharge: 07/26/18 Date of : 30 Report #: [id number] THIS REPORT FOR: //name// CC: Yesy VasquezFormerly [facility] INFECTI[facility] CONSULTATION ATTENDING PHYSICIAN: Yesy Flannery MD REASON FOR EVALUATION: Aspiration pneumonitis. HISTORY OF PRESENT ILLNESS: Chart reviewed, patient examined. The patient is an 88-year-old man with not a significant chronic medical history who was found slumped over apparent emesis with loss of consciousness noted for a fairly extended period of time. He did regain, although he was confused, suspected weakness somewhat localized to the right side is resolved as well. He was admitted to the Emergency Room where he was evaluated. He complained of abdominal distention, did have some chills as well. He is unaware of any fevers, although there is recorded temperature elevation while here and admits to cough. He states his appetite has been somewhat diminished. He is undergoing imaging of his head, which showed no acute process. Urinalysis was otherwise unremarkable. Chest x-ray raised a question of a right upper lobe infiltrate, empirically on azithromycin and ceftriaxone. At present, he is not on supplemental oxygen. He does have some degree of encephalopathy. ALLERGIES: LISTED TO PENICILLINS, TETRACYCLINE. CURRENT MEDICATIONS: Include azithromycin, enoxaparin, tamsulosin, terazosin, ceftriaxone, cholecalciferol, metoprolol, finasteride, guaifenesin, ipratropium and albuterol inhaler. PAST MEDICAL HISTORY: Benign prostatic hypertrophy with previous TURPs, cataract surgery, rheumatic fever as a child, does have an aortic aneurysm, previous knee and rotator cuff surgeries. SOCIAL HISTORY: Former smoker. No ethanol, no illicit drug use. FAMILY HISTORY: Noncontributory. REVIEW OF SYSTEMS: A 10-point review of systems is otherwise unremarkable with the exception noted above in history and physical and present illness. PHYSICAL EXAMINATION: GENERAL: He does have somewhat of a blunted affect, is not overtly distressed, somewhat slow to respond verbally mildly, chronically ill-appearing. VITAL SIGNS: Temperature 97.8, pulse 60, respirations 18, blood pressure is [facility] [address] [place] [address] CONSULTATION Name: ELSA ELLISON Room #: 353-P [facility] IN M.R.#: [id number] Admission: 07/22/18 Attend Phys: Rony Zeng MD Discharge: 07/26/18 Date of : 30 Report #: [id number] 108/53. SKIN: Warm, dry, no rashes. NECK: Supple. HEENT: Extraocular muscles intact. LUNGS: Really diminished overall, few scattered crackles, I did not hear any wheezes, no rhonchi. HEART: Regular. I do not appreciate a murmur. ABDOMEN: Soft. It is distended. There are no peritoneal signs. EXTREMITIES: Distal lower extremities are without edema. GENITOURINARY: Deferred. RECTAL: Deferred. LABORATORY DATA: Blood cultures are sterile thus far. Abdominal ultrasound, there is some tumefactive sludge within the gallbladder without evidence of cholecystitis or biliary ductal dilatation. Urinalysis unremarkable. Lactic acid serially was 2.1 and then 1.5. Procalcitonin elevated at 0.81. Chest x-ray as described above. CBC: White count of 13.5, H and H 12.8 and 38.4, platelets of 189. Electrolytes: Sodium 136, potassium 4.2, chloride 99, bicarbonate is 28, BUN and creatinine 18 and 1.1, anion gap of 9. LFTs unremarkable. Albumin 3.6. Total protein 7.3, estimated GFR of 63. ASSESSMENT: Febrile illness with some evidence that suggests possible aspiration pneumonitis does have radiographic changes. We will continue empiric therapy noted in Pulmonary's note as well, and it is not clear if this is a complication of something to this point has been not identified. See how he does clinically, await culture results. Certainly, the shaking chills raises question of Streptococcus pneumoniae. We will monitor. <ELECTRONICALLY SIGNED> By: Tomy Rahman MD 07/30/18 1049 [id number] Tomy Rahman MD /nt
== END 2018-07-26 11:20 | DRG 871 ==
LOC: ER 18:23 → EROBS 20:25 → 3W 21:27
PROVIDERS: Emergency Medicine; Hospitalist; Nurse Practitioner Acute Care; Pediatrics; ADMIT Family Medicine
DX: A41.9 Sepsis, unspecified organism (principal); J69.0 Pneumonitis due to inhalation of food and vomit; J96.01 Acute respiratory failure with hypoxia; E87.0 Hyperosmolality and hypernatremia; I47.1 Supraventricular tachycardia; R65.20 Severe sepsis without septic shock; K21.9 Gastro-esophageal reflux disease without esophagitis; I10 Essential (primary) hypertension; M81.0 Age-related osteoporosis without current pathological fracture; R13.10 Dysphagia, unspecified; N40.1 Benign prostatic hyperplasia with lower urinary tract symptoms; R33.8 Other retention of urine; Z98.49 Cataract extraction status, unspecified eye; Z88.0 Allergy status to penicillin; Z87.891 Personal history of nicotine dependence; Z85.46 Personal history of malignant neoplasm of prostate; Z85.51 Personal history of malignant neoplasm of bladder; Z82.49 Family history of ischemic heart disease and other diseases of the circulatory system; Z86.73 Personal history of transient ischemic attack (TIA), and cerebral infarction without residual deficits; Z79.899 Other long term (current) drug therapy
CPT/HCPCS: 10879

== ENCOUNTER 2018-07-26 10:36 | Inpatient (IN) | payer OTHER, MEDICARE ==
[~2018-07-26] VITALS: Ht 175.3 cm; Wt 84.1 kg
--- NOTE | ~2018-07-26 | HC ---
[facility] [place] [address] CONSULTATION Name: SCOTELSA VILLALPANDO Room #: 513-P [facility] IN M.R.#: [id number] Admission: 07/26/18 Attend Phys: Jeff Stevens MD Discharge: Date of : 30 Report #: [id number] THIS REPORT FOR: //name// CC: Jeff Gonzalez HISTORY OF PRESENT ILLNESS: The patient is an 88-year-old man who was initially admitted to the hospital on 07/22/2018 after an episode of syncope. He was noted to have right upper and right lower extremity weakness. A right upper lobe infiltrate was noted. He had complaints of dysphagia and sepsis as well as urinary retention and initial MRI of the brain showed no evidence of stroke. The patient was treated. He responded well to medications. His pneumonia cleared. He did have an episode of SVT. He had no further episodes of syncope. He has indwelling urinary catheter. He was transferred to Rehabilitation Unit. Neurology was asked to see him because of the difficulty swallowing as well as the difficulty walking and weakness. The patient has an extensive past medical history of bladder cancer and prostate cancer. He has had a procedure for aortic aneurysm and he is on antihypertensive medication. He has had bilateral rotator cuff surgeries. Initially, he did well, but then did develop decreased range of motion again in both shoulders and he has had cataract surgery. He wears a hearing aid because of significant hearing loss. The patient smoked up until about a year ago. He states that 50 years ago when he was in the service, he was a heavy drinker, but has not had alcohol for the last 50 years. He denies any recreational drugs. ALLERGIES: HE IS ALLERGIC TO PENICILLIN. FAMILY HISTORY: He does not know the cause of of his parents. They did both have long lives however. He has 2 children, but both are adopted. REVIEW OF SYSTEMS: The patient does complain of hearing loss and wears a hearing aid and complains of difficulty swallowing and weakness. He denies headaches, but does complain of some memory loss. He was driving up until he came into the hospital and he was taking care of his financial affairs. He himself reports difficulty coming up with words, but this did not interfere with his activities of daily living. The patient denies any involuntary movements or tremors. He does note some difficulty with walking; however, when he uses a cane or a walker it increases his ability to get around. He denies chest pain, shortness of breath, cough, abdominal pain. He does have urinary retention. He denies swelling of his legs. He does complain of numbness in the feet, but no nocturnal pain. There is no history of diabetes. PHYSICAL EXAMINATION: VITAL SIGNS: As above. [facility] [address] [place] [address] CONSULTATION Name: ELSA ELLISON Room #: 513-P [facility] IN M.R.#: [id number] Admission: 07/26/18 Attend Phys: Jeff Stevens MD Discharge: Date of : 30 Report #: [id number] GENERAL: The patient is well-developed man sitting in a bedside chair. Hearing aids are in place and he does have an indwelling urinary catheter. He is in no apparent distress. NECK: Supple. VASCULAR: No edema is noted. NEUROLOGIC: He is alert and oriented with normal memory and speech. On cranial nerve testing, there is evidence of cataract surgery. Extraocular movements are full. Pupils are equally round and reactive. Visual shen are full to confrontation. Facial sensation and mobility are normal. Hearing is impaired bilaterally. Tongue is normal. The patient had no ptosis. When asked to elevate his eyes and look at my finger held above his eyes for 10 seconds, there was no evidence of fatigue or ptosis. MOTOR: Testing revealed marked limitation of movement of both shoulders. He had good power in the deltoids when he did not have to abduct or elevate his arms. Biceps and triceps were full, wrist flexors and wrist extensors were full bilaterally. On the right, he had weakness and atrophy of the thenar eminence with a positive Tinel sign on the right. On the left, he had full power in the arm. In the legs, he had good power proximally as well as distally and I could not detect any definite weakness in the legs. No fasciculations or involuntary movements were noted. On sensation testing, the patient had decreased vibration sense and decreased proprioceptive sense at the feet bilaterally. There was decreased appreciation to pin in the feet to the ankles. Coordination testing was done well with, [id number] and rapid alternating movements. Reflexes were brisk in the arms and at the knees, decreased at the ankles. The toes were downgoing. The patient could get up from the chair without help, but his gait was characterized by small steps. The patient does wear dentures and does use a dental preparation, which supposedly is zinc-free, but a question of Copper deficiency is raised. ASSESSMENT AND PLAN: The patient has findings of a peripheral neuropathy. He does not drink alcohol and does not have diabetes, but B12 deficiency or folate deficiency should be checked as well as serum protein electrophoresis. The patient did have a mild lid lag sign and thyroid also will be checked. Copper level also will be checked. The patient does not have evidence of fasciculations and with the sensory findings I do not believe that he has amyotrophic lateral sclerosis. He has dysphagia, but does not have other symptoms or signs of myasthenia gravis. Nevertheless, in an 88-year-old man, the findings can be atypical and I would recommend checking a serology for myasthenia gravis as well. By: [id number] Attila Trujillo MD /nt
[~2018-07-26 10:36] MED LIST changes: +FLOMAX0.4 MG PO; +LEVAQUIN 500 M500 M2 PO; +MUCINEX600 MG PO
[2018-07-26 11:30] VITALS: BP 105/65
--- NOTE | 2018-07-26 11:53 | NUR ---
PT CARE ASSUMED 0700. PT DISCHARGED TO 5N REHAB UNIT THIS SHIFT. CASE MANAGEMENT NOTIFIED PT'S DAUGHTER OF TRANSFER AFTER MAKING 2 ATTEMPTS TO CALL . PT AWARE. ALERT AND ORIENTED X4 WITH MOD FORGETFULNESS. DENIES PAIN AND SOA. MADE ATTEMPT TO WEAN O2 TO RA. PT SAT WAS LOW UPON SPOT CHECK REASSESSMENT. 1LNC REPLACED. UP WITH MAX 2 PERSON ASSIST AND WALKER. VSS. OSPINA IN PLACE. REPORT CALLED TO ROBY [place] NURSE. SHE DENIES QUESTIONS OR CONCERNS DOES PT REGARDING POC/TRANSFER. PIV REMAINS IN PLACE PER RECEIVING NURSE REQUEST.
--- NOTE | 2018-07-26 15:24 | NUR ---
PT ARRIVED AT 1130. VITALS STABLE. A/O *4 BUT FORGETFUL. HARD OF HEARING. NO SKIN ISSUES. PT DENIES PAIN. ON 2 L O2 VIA NC WITH SATS >95%. TOOK OFF O2 THIS AFTERNOON AND MAINTAINED SATS >90% ON RA. UP WITH 1 PERSON PIVOT TRANSFERS AND TOLERATED WELL. AMBULATED WITH THERAPY THIS AFTERNOON DOWN THE HALLWAY. Q1H VISUAL CHECKS. CALL LIGHT WITHIN REACH. FALL PRECAUTIONS IN PLACE
--- NOTE | 2018-07-26 15:42 | NUR ---
PT NEW TO ACUTE 5N REHAB TODAY. PT IS IN BED EYE OPEN, A & O X3, PLEASANT AND STILLAGUAMISH. INTRO TO CM, TRANSITION OF CARE, TEAM MEETINGS, AND HOME HEALTH. ELSA REPORT " LIVE HOME WITH , RANCH HOME, 2 STEP TO ENTER AND NO STAIRS INSIDE, RANCH STYLE HOME. SAFE AT HOME. HAVE WALKER. WAS DRIVING PRIOR TO THIS ALL HAPPENING. MANAGE OWN MEDICATION. "/ELSA. PT REQUESTED HIS TV REMOTE AND PHONE DURING VISIT. CM REMINDER HIM THAT TV REMOTE IS CALL LIGHT TO REACH NURSE AND LAYING NEXT TO HIM IN BED. CM PLACED PHONE ON PT BEDSIDE TABLE WHERE HE CAN REACH IT. " THANK YOU, I AM GOING TO REST IF IT IS OK"/ELSA. CM LETTING PT REST PER HIS REQUEST AND WILL CONT FOLLOWING NEEDED FOR DC NEEDS.
[2018-07-26 19:43] VITALS: BP 134/70
[2018-07-27 03:00] LABS: CALCIUM 8.6 mg/dL (8.5-10.1); CREATININE 0.8 mg/dL (0.7-1.3); POTASSIUM 3.6 mmol/L (3.5-5.1)
--- NOTE | 2018-07-27 03:03 | NUR ---
assumed care at approx 1900 evening 07/26. pt lying in bed with head of bed elevated at change of shift. pt pleasant, cooperative, and somewhat confused and forgetful. pt took hs meds with applesauce tolerating well. ayala to dd with yellow urine to bag. call light in reach and bed alarm on. will continue to monitor.
[2018-07-27 03:48] LABS: HEMATOCRIT 31.1 % (42.0-52.0); HEMOGLOBIN 10.2 gm/dL (14.0-18.0); MCH 29.7 pg (26.0-34.0); MCHC 32.9 g/dL (28.0-37.0); MCV 90.4 fL (80.0-100.0); RBC 3.44 mil/uL (4.50-6.00); RDW 14.2 % (10.5-14.5); WBC 8.7 thou/uL (4.0-11.0)
[2018-07-27 08:14] VITALS: BP 133/54
--- NOTE | 2018-07-27 15:27 | NUR ---
ASSUMED CARES AT 0700. PT AWAKE, A/O*4,BUT FORGETFUL. ANXIOUS THIS AM REGARDING THERAPY SCHEDULE, STAFF EXPLAINED TO HIM HOW IT WORKS AND PT VERBALISED UNDERSTANDING. VITALS REMAINED STABLE. LS REMAIN CLEAR, ON O2 1L VIA NC WHEN ASLEEP AND RA WHEN AWAKE. SATS >94%. 2+/2+ PULSES. SWALLOWING PRECAUTIONS MAINTAINED- PT ON HONEY THICK LIQUIDS ORDERED. OSPINA REMAINS INTACT AND PATENT, URINE IS CLEAR, LIGHT YELLOW AND NO FOUL ODOR. PT UP WITH 1 PERSON MINIMUM TRANSFER AND TOLERATED WELL. Q1H VISUAL CHECKS. CALL LIGHT WITHIN REACH. FALL PRECAUTIONS IN PLACE
[2018-07-27 19:25] VITALS: BP 145/77
[2018-07-27 20:00] VITALS: BP 102/59
[2018-07-27 22:00] VITALS: BP 102/59
--- NOTE | 2018-07-27 22:00 | NUR ---
HEART RATE 140 EARLY THIS SHIFT. EKG OBTAINED SHOWED TACHYCARDIA WITH RATE OF 124. METOPROLOL GIVEN AN HOUR AGO WITH RATE DECREASED TO 77. PATIENT ASYMPTOMATIC THROUGHOUT AND WILL HAVE METOPROLOL DAILY FROM HERE FORWARD. OSPINA TO DD FOR RETENTION. EXPLAINED TO PATIENT THAT HE GETS FLOMAX AND WILL PROBABLY HAVE VOIDING TRIAL SOON. MEDS IN APPLESAUCE. APPRECIATES HAVING TELEPHONE PLACED WITHIN HIS REACH
[2018-07-28 04:20] VITALS: BP 132/57
[2018-07-28 04:21] VITALS: BP 127/58
[2018-07-28 07:25] VITALS: BP 141/80
--- NOTE | 2018-07-28 11:14 | NUR ---
ASSUMED CARE AT 0700. PATIENT ALERT AND ORIENTED X4. PATIENT NOTED TO HAVE SOME RIGHT SIDED WEAKNESS. PATIENT GETS ANXIOUS AND IS FORGETFUL. [place], LUNGS ARE CLEAR, HR IS IRREGULAR. PATIENT HAS HEARING AID FOR RIGHT EAR, BUT IT DOESN'T HELP MUCH. PATIENT HAS OSPINA R/T RETENTION. PATIENT IS ON THICKENED LIQUIDS. PATIENT IS UP WITH GAIT BELT AND WALKER FOR TRANSFERS. PATIENT WAS UP IN CHAIR FOR MEALS. FALL AND SAFETY PROTOCOLS IN PLACE. C/O PAIN IN HIS BACK. PATIENT CONTINUES TO PROGRESS SLOWLY TOWARDS D/C GOALS. WILL CONTINUE TO MONITER.
--- NOTE | 2018-07-28 11:23 | NUR ---
DR. ALEXANDER HERE TO SEE PATIENT. NO NEW ORDERS AT THIS TIME. AT BEDSIDE. WILL CONTNUE TO MONITER.
[2018-07-28 19:34] VITALS: BP 143/85
--- NOTE | 2018-07-29 01:39 | NUR ---
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 FORGETFUL AND APPRECIATIVE TO OUR ATTENTION TO DETAILS CONCERNING MEDS, DENTURES, HEARING AID.
[2018-07-29 08:14] VITALS: BP 92/49
--- NOTE | 2018-07-29 19:44 | NUR ---
ASSUMED CARE AT APPROX 0715. PATIENT AWAKE. ORIENTED TO PERSON AND SITUATION. [place]. FORGETFUL AT TIMES. C/O ITCHING ON UPPER BACK. SKIN ASSESSED, SMALL RASH VISIBLE. PROVIDER NOTIFIED, ORDERS FOR HYDROCORTISONE CREAM RECEIVED, APPLIED. PATIENT TOLERATED MEDS WHOLE IN PUREE, ON HONEY THICK LIQUIDS. FALL PRECAUTIONS IN PLACE. PATIENT VISIBLE FROM NURSES STATION. RESTING IN BED AT CHANGE OF SHIFT.
[2018-07-29 20:00] VITALS: BP 150/74
--- NOTE | 2018-07-29 21:59 | HC ---
[facility] [place] [address] CONSULTATION Name: ELSA ELLISON Room #: 513-P [facility] IN M.R.#: [id number] Admission: 07/26/18 Attend Phys: Jeff Stevens MD Discharge: Date of : 30 Report #: [id number] THIS REPORT FOR: //name// CC: Jeff Stevens Dalton Akkulugari DATE OF SERVICE: 07/28/2018 ATTENDING PHYSICIAN: Jeff Stevens MD MOTORCYCLE ENGINE ASSEMBLER: Buck Miller, PhD CLINICAL PRESENTATION: The patient is an 88-year-old male admitted to [facility] Rehabilitation Unit for comprehensive inpatient rehabilitation program to improve functional mobility, activities of daily living and self-care and mental status secondary to deficits from a period of unconsciousness with right upper and lower extremity weakness. His diagnosis on admission to rehab also includes severe dysphagia, continued on honey thickened liquids, severe sepsis, possible aspiration pneumonia, supraventricular tachycardia, acute respiratory failure with hypoxia, question of syncope, hypertension, urinary retention with indwelling Crawford catheter and prior history of bladder and prostate cancer with a prior TURP x 2. A complete description of his medical condition and history along with medications can be found in his medical record. Neuropsychological consultation was requested to provide assistance in the assessment of cognitive and emotional status and to provide recommendations and services. Prior to this most recent medical event, he was living with his . The patient is reported to have been independent with instrumental activities of daily living including driving. He is a college graduate. 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 He has two children. There was no reported prior history of treatment for depression or anxiety or problems with alcohol/drug abuse. TECHNIQUES UTILIZED: Clinical interview, review of medical records, staff consultation and behavioral observation, family interview -- , mini mental status exam 2 standard version, verbal fluency assessment (letter and category) and clock drawing. EXAMINATION FINDINGS: The patient was alert and cooperative with the assessment. He was unable to accurately describe events surrounding his admission. His provided background as to the events leading to his emergency services, contact and admission to the hospital. The patient reports having had a fall when he really was at his home and had a period of unconsciousness, becoming unresponsive when she called emergency services. [address] [address] CONSULTATION Name: ELSA ELLISON Room #: 513-P [facility] IN M.R.#: [id number] Admission: 07/26/18 Attend Phys: Jeff Stevens MD Discharge: Date of : 30 Report #: [id number] His thoughts are logical and goal oriented. There is no evidence of thought disorder. There is no report of auditory or visual hallucinations. The patient has longstanding history of anxiety and is anxious at this time. He does not report depression. There was no difficulty reported from the patient or in regard to memory, word finding or general cognitive functioning. Difficulty with sleep and appetite are reported. His performance on the MMSE 2 brief version was extremely low with a raw score of 11 of 16 and a T score of 21. He is hard of hearing, which may have had an effect on aspects of auditory memory. He was 2/3 with initial registration because of repetition needed. He was 4/5 for orientation to time, 4/[address] and 1/3 for immediate recall of 3 items after a brief time delay and distraction. He had a raw score of 11, which is a T score of 21. He indicated that the year is 1998. He also thought he was on the 3rd floor. His performance improved on the standard version of the MMSE 2 with a raw score 25 of 30. He was 5/5 for serial sevens, 2/2 for naming, 1/1 for repetition, 3/3 for comprehension. He could read and follow single command, write a sentence and copy a simple geometric design. Clock drawing was impaired. He had difficulty initially with numbers, indicating numbers and time on the clock. He also was unable to accurately set the hands at a designated time. Stimulus bound effect was noted on hand placement with this. His performance on the MMSE standard version was T of 40 was at the 16th percentile. Letter fluency was at the 24th percentile with a raw score of 8, T score of 43. Category fluency was extremely low with a raw score of 19, T score of 28 and percentile rank of 1. Overall, total fluency was in the borderline range with a T score of 32 and percentile rank of 4. The patient is presenting with deficits in immediate recall and higher level of executive functioning. Verbal fluency is likely to be reduced as well as organization. 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 Unspecified anxiety disorder. RECOMMENDATIONS: The patient will benefit from the use of compensatory strategies for areas of memory, thought organization and general executive functioning. The use of relaxation techniques along with verbal reassurance will also assist in the management of anxiety. A followup neuropsychological evaluation should be made prior to return to driving or increased [facility] [address] [place] [address] CONSULTATION Name: ELSA ELLISON Room #: 513-P [facility] IN M.R.#: [id number] Admission: 07/26/18 Attend Phys: Jeff Stevens MD Discharge: Date of : 30 Report #: [id number] responsibilities in regard to bill payment. Thank you very much for allowing me to provide the consultation on this patient. <ELECTRONICALLY SIGNED> By: Buck Miller, PhD 07/29/18 [id number] Buck Miller, PhD /nt
--- NOTE | 2018-07-29 23:11 | NUR ---
assumed care at approx 1900 evening 07/29. pt lying in bed with head of bed elevated resting and watching tv. pt pleasant and cooperative, forgetful. pt took hs meds with applesauce tolerating well. ayala to dd with clear, yellow urine to bag. pt appears to be sleeping at present. call light in reach and bed alarm on. will continue to monitor.
[2018-07-30 07:50] VITALS: BP 143/75
--- NOTE | 2018-07-30 12:37 | NUR ---
team meeting, recommendation : thicken liquid at bedside. supervision for management of money and medication. re team and possible dc 17 with hh.
--- NOTE | 2018-07-30 16:17 | NUR ---
ASSUMED CARES AT 0700. PT AWAKE, A/O*4. FORGETFUL AND COMANCHE. SATS >95% ON RA DENIES PAIN. BP LOW AFTER BREAKFAST SBP 88, PT TRANSFERED TO BED AND ENCOURAGED TO TAKE ORAL FLUIDS SBP 98 AFTER 30 MINUTES, 101 AFTER 2HRS. PT C/O DIZZINES WHEN SBP WAS AT 88, RESOLVED AFTER PT LAID DOWN. ALL OTHER VITALS REMAINED STABLE. PT CONTINOUS TO HAVE A RASH ON HIS BACK RIGHT, HYDROCORTISONE CREAM APPLIED ORDERED. PT ATE 75%-100% OF HIS MEALS. UP WITH 1 PERSON MIN ASSIST. Q1H VISUAL CHECKS. CALL LIGHT WITHIN REACH. FALL PRECAUTIONS IN PLACE
[2018-07-30 19:54] VITALS: BP 112/68
--- NOTE | 2018-07-31 01:22 | NUR ---
ASSUMED CARE OF PT AT 1915. PT ALERT AND ORIENTED X4, CALM AND COOPERATIVE. DENIES PAIN, NAUSEA OR DYPSNEA. TRANSFERRED FROM CHAIR TO BED WITH MOD ASSIST OF ONE. HAS APPEARED TO BE SLEEPING WHEN CHECKED ON HOURLY ROUNDS. FALL PRECAUTIONS IN PLACE.
[2018-07-31 05:39] LABS: CREATININE 0.9 mg/dL (0.7-1.3); POTASSIUM 4.1 mmol/L (3.5-5.1)
[2018-07-31 08:00] VITALS: BP 147/82
--- NOTE | 2018-07-31 11:30 | NUR ---
ASSUMED CARE AT 0700. PATIENT IS VERY [place], PATIENT IS ALERT AND ORIENTED X4. PATIENT IS VERY FORGETFUL. VS TAKEN. LUNGS ARE CLEAR AND DEMINISHED. ABD IS SOFT WITH BSX4. NO EDEMA NOTED IN HIS LOWER EXTREMITES. FALL AND SAFETY PROTOCOLS IN PLACE. PATIENT UP IN W/C AND OUT TO THE DINING ROOM FOR MEALS. DENIES ANY PAIN AT THIS TIME. CONTINUES TO PROGRESS SLOWLY TOWARDS D/C GOALS. WILL CONTINUE TO MONITER.
--- NOTE | 2018-07-31 13:59 | NUR ---
cm left message with his humphrey rt home health at [facility] and possible dc 17th. cm spoke with eric, list choice provided. " well have to see about this. not sure if necessary."/eric. education on hh and passed on to 5n team to encourage benefits of home health at dc when working with pt. will cont following as needed for dc needs.
--- NOTE | 2018-07-31 14:59 | NUR ---
Patient participated in community reintegration on 07/31/[address] Refer to documentation by
[2018-07-31 19:29] VITALS: BP 135/63
--- NOTE | 2018-07-31 22:15 | NUR ---
PATIENT APPRECIATES HC CREAM TO BACK AND EXPLANATION OF MEDS. PREFERED TO LEAVE T-SHIRT AND PAJAMA PANTS ON TONIGHT (SOMETIMES HE WEARS OUR GOWN OVERNIGHT). DRINKING THICKENED LIQUIDS WITH HEAD UPRIGHT AFTER CAPSULES IN APPLESAUCE. NO C/O PAIN OR SOA
--- NOTE | 2018-08-01 10:52 | NUR ---
ASSUMED CARE AT 0700. PATIENT IS ALERT AND ORIENTEDX4, BUT VERY [place]. PATIENT WRAP YARN SORTER ARE EQUAL. LUNGS ARE CLEAR. ABD IS SOFT WITH BSX4. PATIENT IS ON HONEY THICK LIQUIDS. PATIENT WAS ENCOURAGED TO DRINK MORE. PATIENT HAS OSPINA TO DD, DRAINING NEEL COLORED URINE. PATIENT IS FORGETFUL AT TIMES. UP IN CHAIR FOR SPEECH. VITASTIM WAS DONE F0R BREAKFAST WITH S.T. RASH ON THE PATIENTS BACK IS IMPROVING. FALL AND SAFETY PROTOCOLS IN PLACE. DENIES ANY PAIN. CONTINUES TO PROGRESS SLOWLY TOWARDS D/C GOALS. WILL CONTNUE TO MONITER.
--- NOTE | 2018-08-01 10:58 | NUR ---
PATIENT C/O BEING DIZZY DURING O.T. BP 59/30, PATIENT RETURNED TO BED. BP 108/60, AND HIS PULSE 76. N.P. HERE ENCOURAGED PO HONEY THICK FLUIDS. METOPROLOL DOSE DECREASED. WILL CONTINUE TO MONITER
--- NOTE | 2018-08-01 14:41 | NUR ---
cm went to visit with bod and at bedside rt education on benefits of home health ( pt, ot, st, and nursing). stated humphrey " well lets not talk about that, lets talk about short therapy in am, his low bp and nothing to drink on his table and why he was at lunch so long today, over an hour"/galina. cm provided active listening, said sorry and would try to have therapy and bedside nurse come and speak with pt and " thank you so much, not try to be a bother, just have question"/humphrey. cm spoke with speech, ot and nurse information passed on. speech took pt cup of honey thick lemon water per pt request. pt and request to address home health. will cont following as needed for dc needs.
[2018-08-01 21:08] VITALS: BP 134/73
[2018-08-02 05:37] LABS: ABSOLUTE NEUTROPHILS 7.5 thou/uL (1.4-8.2); BASOPHILS 0.4 % (0.0-2.0); EOSINOPHILS 1.3 % (0.0-3.0); HEMATOCRIT 31.2 % (42.0-52.0); HEMOGLOBIN 10.5 gm/dL (14.0-18.0); LYMPHOCYTES 9.8 % (24.0-44.0); MCH 30.2 pg (26.0-34.0); MCHC 33.7 g/dL (28.0-37.0); MCV 89.5 fL (80.0-100.0); MONOCYTES 9.6 % (1.0-8.0); PLATELET COUNT 269 thou/uL (150-400); POLYS 78.9 % (36.0-66.0); RBC 3.49 mil/uL (4.50-6.00); RDW 14.1 % (10.5-14.5); WBC 9.5 thou/uL (4.0-11.0)
--- NOTE | 2018-08-02 06:01 | NUR ---
OFFERED FLUIDS FREQUENTLY DURING THE NIGHT, AT LEAST Q2HRS. TOOK MEDS, DRANK THICKENED WATER WITHOUT DIFFICULTY. OSPINA CATHETER WITH 800ML YELLOW URINE. APPLIED CREAM TO ITCHY RED/SCABBY RASH ON HIS BACK. DENIED PAIN. DENTURES, HEARING AID ON HIS BEDSIDE TABLE ALONG WITH PHONE DURING THE NIGHT. CALM, PLEASANT.
[2018-08-02 06:02] LABS: CALCIUM 9.1 mg/dL (8.5-10.1); MAGNESIUM 2.2 mg/dL (1.8-2.4); POTASSIUM 3.9 mmol/L (3.5-5.1)
[2018-08-02 08:30] VITALS: BP 101/47
--- NOTE | 2018-08-02 19:35 | NUR ---
ASSUME PT CARE AT 0700. VSS ON RA. B/P 101/47, HR 80. NOTIFIED ANI, OBTAINED PARAMETER FOR B/P MEDS . ENCOURAGED PT TO DRINK MORE FLUID. PT CONTINUE ON HONEY THICK LIQUID. HAD 900CC FLUID INTAKE TODAY. OSPINA CATH INTACT HAS 800CC NEEL URINE. PATIENT IS ALERT AND ORIENTEDX4, BUT VERY [place]. PATIENT PACKAGING SUPERVISOR ARE EQUAL. LUNGS ARE CLEAR. ABD IS SOFT WITH BSX4. PATIENT IS ON HONEY THICK LIQUIDS. PATIENT WAS ENCOURAGED TO DRINK MORE. PATIENT IS FORGETFUL AT TIMES. UP IN CHAIR FOR SPEECH. VITAL STIM WAS DONE F0R BREAKFAST WITH S.T. HAD MRI THIS AM FOR DYSPHAGIA AND EVAL FOR STROKE. NO ACUTE CVA AT THIS TIME. RASH ON THE PATIENTS BACK IS IMPROVING. APPLIED HYDROCORTISOL CREAM ORDERED. MEDS GIVEN ORDERED. TOOK MEDS WITH APPLE SAUCE WITHOUT DIFFICULTY. UP WITH WALKER TO . UP TO DINNING ROOM FOR MARYSE. HAS FAIR APPETITE. PT TOOK NAP BEFORE DINNER. GOT CONFUSED EVENING WITH MORNING. REORIENTED PT TO TIME. PT REQUESTS TO LAY DOWN IN BED. FALL AND SAFETY PROTOCOLS IN PLACE. DENIES ANY PAIN. OFFERED SUPPORTIVE CARE. PT IS UP AND DOING WELL WITH THERAPY TODAY.CONTINUES TO PROGRESS SLOWLY TOWARDS D/C GOALS. GAVE REPOR TO NIGHT NURSE TO CONTINUE TO MONITOR.
[2018-08-02 21:27] VITALS: BP 138/60
--- NOTE | 2018-08-03 02:52 | NUR ---
assumed care at approx 1900 evening 08/02. pt lying in bed with head of bed elevated resting. ayala to dd with clear, yellow urine to bag. pt awake and alert, forgetful and hard of hearing. pt took hs meds with honey thick liquid tolerating well. pt assisted with repositioning as he slides down in bed frequently. pt sleeping at present. bed alarm on and call light in reach. will continue to monitor.
[2018-08-03 08:07] VITALS: BP 129/63
--- NOTE | 2018-08-03 19:25 | NUR ---
ASSUME PT CARE AT 0700. VSS ON RA. CONTINUE ON HONEY THICK LIQUID. OSPINA CATH INTACT HAS 400CC CLEAR URINE. PT C/O PAIN ON PENIS FROM OSPINA PULLING. ADJUSTED COUPLE TIMES, PT FELT BETTER AND COMPLAIN AGAIN. DEFLATED BALLOON ATTEMPT TO INSERT FUTHER BUT MET RESISTANCE. REMOVED OSPINA NOTIFIED DR. CLIFFORD WHO SAID LEAVE OSPINA OUT NOW. MONITOR PER PROTOCOL. BS TONIGHT AND REINSERT OSPINA BACK IF GREATER THAN 500CC. OSPINA REMOVED AT 1230. BLADDER SCAN AT 100. HAD 110 CC IN BLADDER. PT SAID HE CAN'T URINATE NOW. ENCOURAGED PT TO DRINK MORE FLUID. PT UP TO DINNING ROOM. WATCHED [email or web address] GAME ATE 40% DINNER. GAVE REPORT TO NIGHT NURSE TO CONTINUE TO MONITOR. PT HAD 3X SMALL BM TODAY. UP WITH CGA WITH A WALKER. WAS HERE WITH PT FOR A SHORT TIME. DENIES PAIN, SOB, N/V. FALL PRECAUTION IN PLACE. ALARM IS ON. CALL LIGHT WITHIN REACH. PT CALL APPROPRIATELY, JUST [place]. PATIENT ALERT AND ORIENTED X4, FORGETFUL AT TIMES. OFFERED SUPPORTIVE CARE. PT IS UP AND DOING WELL WITH THERAPY TODAY.CONTINUES TO PROGRESS SLOWLY TOWARDS D/C GOALS. GAVE REPOR TO NIGHT NURSE TO CONTINUE TO MONITOR.
[2018-08-03 19:48] VITALS: BP 140/65
--- NOTE | 2018-08-04 03:59 | NUR ---
assumed care at approx 1900 evening 08/03. pt sitting up in w/c at change of shift watching football game in dining area. pt alert and oriented and happy that [employer] won. assisted pt back to his room and into bed. pt took hs meds with honey thick tea and fell asleep early. pt voided 100cc and bladder scanned showing 750ml. inserted ayala catheter without difficulty and 600ml urine out. pt now sleeping. bed alarm on and call light in reach. will continue to monitor.
[2018-08-04 08:10] VITALS: BP 103/48
--- NOTE | 2018-08-04 11:22 | NUR ---
ASSUMED CARES AT 0700. PT AWAKE, ALERT AND ORIENTED*4 BUT FORGETFUL. MULTIPLE CONCERNS REGARDING HIS BP AND O2 SATURATIONS, PT TEACHING DONE AND PT VERBALISED UNDERSTANDING. VITALS REMAIN STABLE. PT DENIES PAIN. C/O DISCOMFORT AROUND HIS OSPINA CATHETER, OSPINA FASTENED PROPERLY TO PREVENT PULLING, NO IRRITATION NOTED AROUND THE SITE. OSPINA REMAINS PATENT AND INTACT. URINE IS LIGHT YELLOW AND CLEAR. PT AMBULATED WITH STAFF AND TOLERATED WELL. UP TO THE DINING AREA FOR BREAKFAST. Q1H VISUAL CHECKS. CALL LIGHT WITHIN REACH. FALL PRECAUTIONS IN PLACE
[2018-08-04 19:01] VITALS: BP 144/79
[2018-08-05 08:00] VITALS: BP 147/60
--- NOTE | 2018-08-05 13:19 | NUR ---
Nutrition: Pt seen due to LOS on rehab unit. Admitted with R UE, LE weakness, dysphagia. ST following and pt requires mechanically altered ground and honey thick liquids diet. Intake documented as <50% of meals. Noted 75% of meals documented yesterday. Pt receives both magic cup and ensure pudding supplements. He prefers ensure pudding only, offer BID. No weight taken over admit-will request. UBW reported as 175#. Admit weight- 185# per bedscale. ST notes improving dysphagia with possible videoswallow this week. Continue to encourage adequate intake/fluids, noted consistently low BP. Consider low risk with intervention in place.
--- NOTE | 2018-08-05 15:40 | NUR ---
ASSUMED CARES AT 0700. REPORTS SLEPT GOOD LAST NIGHT. PT AWAKE, ALERT AND ORIENTEDX4 BUT FORGETFUL. VITALS REMAIN STABLE ON RA. PT'S B/P WAS LOW COUPLE DAYS AGO. BUT 146/60, HR 70. GAVE METOPROLOL EARLIER TODAY, ANI AWARED. PT DENIES PAIN. DENIES DISCOMFORT AROUND HIS OSPINA CATHETER. OSPINA REMAINS PATENT AND INTACT. URINE IS LIGHT YELLOW AND CLEAR. OT GAVE PT SHOWER THIS AM. PT AMBULATED WITH STAFF AND TOLERATED WELL. UP TO THE DINING AREA FOR BREAKFAST AND LUNCH. APPETITE FAIR. OFFERED SUPPORTIVE CARE. MEDS GIVEN ORDERED WITH APPLE SAUCE. HAS NO NEEDS OR CONCERN AT THIS MOMENT. RESTING IN BED FOR NAP. Q1H VISUAL CHECKS. CALL LIGHT WITHIN REACH. FALL PRECAUTIONS IN PLACE.
[2018-08-05 16:40] VITALS: BP 137/80
[2018-08-05 19:59] VITALS: BP 132/65
--- NOTE | 2018-08-06 00:56 | NUR ---
PATIENT ASSESSED AND IS ALERT X 4. SKIN WARM AND DRY. RESP EVEN AND UNLABORED. HAS SOME LEFT SIDE WEAKNESS NOTED. OSPINA INTACT WITH NEEL URINE. LUNGS CTA-DISM. UP WITH WALKER TO BATHROOM FOR STOOL WITH 1 PERSON ASSIST. NO EDEMA NOTED TO LOWER EXTREMITIES. IS VERY [place]. NO STOOL SO FAR THIS EVENING OR NOC. IS A FALL RISK. TAKES MEDS WHOLE IN APPLESAUSE. IS ON A HONEY THICKEN FLUIDS. TURNED Q 2 HOURS AND PRN. MONITOR VS. CONT PLAN OF CARE. SOME DYSPHAGIA NOTED.
[2018-08-06 08:39] VITALS: BP 131/64
--- NOTE | 2018-08-06 12:53 | NUR ---
team meeting, recommendation: dc 17th with hh ( pt,ot,st,nursing, and sw ), training with st and on ayala care.
[2018-08-06 17:30] LABS: TSH 2.894 uIU/mL (0.358-3.740)
[2018-08-06 18:29] LABS: FOLIC ACID 31.6 ng/mL (8.6-58.9)
[2018-08-06 19:10] VITALS: BP 145/79
--- NOTE | 2018-08-06 19:37 | NUR ---
ASSUMED CARES AT 0700. REPORTS DIDN'T SLEEP GOOD LAST NIGHT. AGREE TO TAKE SLEEPING AID. NOTIFIED ORDER AND OBTAINED ORDER FOR MELATONIN TONIGHT. PT FAILED VIDEO SWALLOWING TODAY AND WILL CONTINUE TO BE ON HONEY THICKEN UNTIL DISCHARGE. NEUROLOGIST CONSULTED FOR SEVERE DYSPHAGIA AND NOT GETTING BETTER WITH VITAL STIMULATOR AND ABNORMAL MRI. DR. BALDERAS CAME TO EVALUATE WITH PT AND TALKED WITH FAMILY. LABS DRAWS AND SEND TO LABS. PT ALSO HAS XRAY FOR SHOULDERS. DENIES PAIN AT THIS MOMENT. OSPINA CATH INTACT AND PATENT WITH 300CC NEEL URINE. OT GAVE PT SHOWER THIS AM. PT AMBULATED WITH STAFF AND TOLERATED WELL. UP TO THE DINING AREA FOR MEALS, APPETITE FAIR TODAY. LOW B/P ENCOURAGED FLUID INTAKE. HELD METOPROLOL ORDERED. OFFERED SUPPORTIVE CARE. MEDS GIVEN ORDERED WITH APPLE SAUCE. HAS NO NEEDS OR CONCERN AT THIS MOMENT. RESTING IN BED AT THIS MOMENT. CALL LIGHT WITHIN REACH. FALL PRECAUTIONS PLACE. GAVE REPORT TO NIGHT NURSE TO CONTINUE TO MONITOR. PT WILL BE D/C HOME ON SUNDAY.
--- NOTE | 2018-08-07 02:51 | NUR ---
ASSUMED CARE OF PT AT 1915. PT ALERT AND ORIENTED X4. OSPINA CATH PATENT WITH ADEQUATE AMOUNTS OF CLEAR LIGHT YELLOW URINE. DENIES PAIN, OR DYPSNEA. ONE EPISODE OF TRANSIENT NAUSEA WITHOUT EMESIS. APPEARED TO BE SLEEPING WHEN CHECKED ON HOURLY ROUNDS DURING THE FIRST HALF OF THE NIGHT, HAS AWAKENED SEVERAL TIMES SINCE. FALL PRECAUTIONS IN PLACE.
[2018-08-07 07:45] VITALS: BP 135/71
--- NOTE | 2018-08-07 13:15 | NUR ---
ASSUMED CARE AT APPROX 0715. PATIENT A/O X4, FORGETFUL. [place]. DENIES PAIN. VSS. UP X 1 ASSIST. PARTICIPATING IN THERAPY. OUT TO TABLES FOR MEALS. PATIENT RESTING UP IN RECLINER WHEN NOT IN THERAPY. LABS REVIEWED, ORDERS RECEIVED FOR PO B12. DISCUSSED NEW MED WITH PATIENT. TENTATIVE PLAN IS D/C TOMORROW. PATIENT WILL CONTINUE TO NEED HONEY THICK LIQUIDS UPON D/C, FAMILY AWARE. OSIPNA WILL REMAIN IN PLACE FOR DISCHARGE. PATIENT AWARE. FALL PRECAUTIONS IN PLACE. WILL CONTINUE TO MONITOR.
[2018-08-07 15:30] VITALS: BP 100/60
[2018-08-07 19:28] VITALS: BP 136/68
--- NOTE | 2018-08-08 03:56 | NUR ---
ASSUMED CARE OF PT AT 1915. PT ALERT AND ORIENTED X4, CALM AND COOPERATIVE. DENIES PAIN, NAUSEA OR DYPSNEA. OSPINA CATH PATENT WITH ADEQUATE AMOUNTS OF CLEAR LIGHT YELLOW URINE. PO MEDS TAKEN WITHOUT DIFFICULTY IN PUREE. ANTICIPATING DISCHARGE LATER TODAY. HAS APPEARED TO BE SLEEPING WHEN CHECKED ON HOURLY ROUNDS. FALL PRECAUTIONS IN PLACE.
[2018-08-08 07:50] VITALS: BP 131/66
[2018-08-08] MEDS ORDERED: ACIDOPHILUS1 EAC4 PO (09:21)
[2018-08-08] MEDS ORDERED: MELATONIN5 M1 PO (09:21)
[2018-08-08] MEDS ORDERED: VITAMIN B-12500 MCG PO (09:21)
[2018-08-08] MEDS ORDERED: PEPCID20 MG PO (09:21)
[2018-08-08] MEDS ORDERED: TOPROL XL25 MG PO (09:21)
[2018-08-08] MEDS ORDERED: MUCINEX600 MG PO (09:21)
[2018-08-08 11:05] VITALS: BP 131/66
--- NOTE | 2018-08-08 11:23 | H ---
[facility] [place] [address] HISTORY AND PHYSICAL Name: ELSA ELLISON Room #: 513-P ADM IN M.R.#: [id number] Admission: 07/26/18 Attend Phys: Jeff Stevens MD Discharge: Date of : 30 Report #: [id number] THIS REPORT FOR: //name// CC: Jeff Stevens Dalton Akkulugari DATE OF SERVICE: 07/26/2018 HISTORY OF PRESENT ILLNESS: The patient is an 88-year-old white male who was originally admitted on 07/22/2018 after having a syncopal episode at home. He was initially unconscious, had right upper and right lower extremity weakness and had emesis. CT of the head was negative. He was noted to have a right upper lobe infiltrate. He was diagnosed with severe sepsis. He had a pneumonia with possible aspiration. He has shown improvement as far as right upper and right lower extremity movement. There is noted to have significant dysphagia; however, and he is on a honey thickened liquid diet with mechanical soft. He also has had problems with urinary retention and has a Crawford catheter placed. He has been followed closely by Pulmonary Medicine, Infectious Disease, Geriatrics as well as Internal Medicine. He has had a significant functional decline from his premorbid status and has not been admitted for acute in-hospital inpatient rehabilitation. PAST MEDICAL HISTORY: Includes rotator cuff surgery bilaterally, TURP x 2, cataract surgery, stapedectomy left ear, rheumatic fever as a child, aortic aneurysm, right knee surgery, hypertension, GERD, prostate CA and bladder CA. MEDICATIONS: Please see the full medication listing. This includes vitamins, herbal supplements. ALLERGIES: He is allergic to PENICILLIN. HABITS: Tobacco: Former 1 pack per day cigarettes, quit greater than a year ago. Alcohol, there is a note of some past usage. SOCIAL HISTORY: Lives with his , house, no steps in, 12 inside. Premorbid cane ambulator. is there and involved and there is an involved daughter who lives in [place]. REVIEW OF SYSTEMS: No complaints of chest pain, shortness of breath, abdominal discomfort, feels he is moving that right arm and leg better. had noted previously a history of urinary frequency premorbidly. PHYSICAL EXAMINATION: GENERAL: An 88-year-old white male in no obvious distress. VITAL SIGNS: Last recorded temperature 98.9, pulse 87, respirations 20, blood pressure 134/70. He follows basic commands, is somewhat hard of hearing, [facility] [address] [place] [address] HISTORY AND PHYSICAL Name: ELSA ELLISON Room #: 513-P [facility] IN .R.#: [id number] Admission: 07/26/18 Attend Phys: Jeff Stevens MD Discharge: Date of : 30 Report #: [id number] pleasant. CHEST: Some decreased breath sounds. He is on nasal prong O2. HEENT: Facies appeared symmetric. CARDIOVASCULAR: Sounded regular rate and rhythm. ABDOMEN: Bowel sounds positive, nontender. GENITOURINARY AND RECTAL: He does have a Crawford catheter in place. The and rectal exam otherwise was deferred. EXTREMITIES: Functional range of motion of both upper and lower extremities with strength appearing symmetric grade 4-/5. DTRs are trace to 1. Lower extremities functional range of motion, strength grade 4-/5. Transfers have been mod assist. Gait min assist with a front-wheeled walker. ASSESSMENT: An 88-year-old white male with the following problems: 1. Initial unconsciousness with right upper and right lower extremity weakness. 2. Severe dysphagia, continuing on honey thickened liquids. 3. Severe sepsis. 4. Possible aspiration pneumonia. 5. Supraventricular tachycardia for which he was given IV Lopressor. 6. Acute respiratory failure with hypoxia. 7. Question of syncope. 8. Hypertension. 9. Urinary retention with indwelling Crawford catheter. 10. Past history of bladder cancer and prostate cancer with prior TURP x2. PLAN: The patient is admitted for acute in-hospital inpatient rehabilitation. He premorbidly lives with his in a house without steps in, 12 inside, was a premorbid cane ambulator. He does have significant decline in her premorbid function. From post-admission physician evaluation perspective, there are no relevant changes since the preadmission screening. Please see the above review of prior and current medical and functional conditions and comorbidities. Please see the patient's previous and current functional status. As far as risk of complications, the patient has multiple medical comorbidities as noted above. Initial plan of care involves the interdisciplinary acute inpatient rehabilitation program with the goal of maximizing the patient's functional independence, so he can hopefully return back to his prior living situation. Measurable functional goals would be for the patient to become modified independent with transfers, mobility, ADLs and improved in swallowing, so he can return back to the home setting. Prognosis is reasonably good with estimated length of stay probably at least 10 days to 2 weeks pending progress. Potential barriers would include his multiple medical comorbidities and decreased functional status. The patient meets diagnostic criteria for an acute in-hospital inpatient rehabilitation stay. He meets the medical necessity criteria and we will have the multiple workforce management consultant physicians continue to follow. He does have the [address] [address] HISTORY AND PHYSICAL Name: ELSA ELLISON Room #: 513-P ADM IN M.R.#: [id number] Admission: 07/26/18 Attend Phys: Jeff Stevens MD Discharge: Date of : 30 Report #: [id number] tolerance for therapies and has appropriate discharge goals back to the home setting. <ELECTRONICALLY SIGNED> By: Jeff Stevens MD 08/08/18 [id number] Jeff Stevens MD /[facility]
--- NOTE | 2018-08-08 11:23 | PLAN ---
[facility] [place] [address] REHAB UNIT PLAN OF CARE Name: ELSA ELLISON Room #: 513-P ADM IN M.R.#: [id number] Admission: 07/26/18 Attend Phys: Jeff Stevens MD Discharge: Date of : 30 Report #: [id number] THIS REPORT FOR: //name// CC: Jeff Stevens Dalton Akkulugari DATE OF SERVICE: 07/27/2018 PROGRESS NOTE/OVERALL PLAN OF CARE SUBJECTIVE: The patient is seen back earlier. He is in no distress. Temperature 36.8, pulse 88, respirations 14, blood pressure 132/54. He had previous limits to bilateral shoulder range of motion that have been noted in OT. Toilet transfers have been mod assist with upper body dressing mod assist, lower body dressing is max assist. He needs some cues for initiation. He has had bilateral rotator cuff surgery. As far as swallowing, he has moderate to severe dysphagia with recommendations for honey thickened liquid diet. He has been needing min assist for short distance front-wheeled walker ambulation. ASSESSMENT: 1. Initial unconsciousness with right upper and right lower extremity weakness. 2. Severe dysphagia, continuing on honey thickened liquids. 3. Severe sepsis. 4. Possible aspiration pneumonia. 5. Supraventricular tachycardia. 6. Acute respiratory failure with hypoxia. He is continuing on the nasal cannula O2. 7. Question of syncope. 8. Hypertension. 9. Urinary retention with indwelling Crawford catheter. 10. Past history of bladder cancer and prostate cancer with prior TURP x 2. PLAN: The overall plan of care is based on the preadmission screen, post-admission physician evaluation, and information garnered from therapy assessments. 1. Estimated length of stay is probably at least 10 days to 2 weeks and likely longer. 2. Medical prognosis is reasonably good. 3. Anticipated interventions include the interdisciplinary acute inpatient rehabilitation program with PT, OT, speech, and rehab nursing assisting regarding medication management, skin care prophylaxis, bowel and bladder issues and nursing education. We will have the multiple product consultant physicians continue to follow. 4. Anticipated functional outcomes would be for the patient to become modified independent with transfers, mobility, and ADLs and improve as far as his swallowing, so he can return back to the home setting. [address] [address] REHAB UNIT PLAN OF CARE Name: ELSA ELLISON Room #: 513-P [facility] IN M.R.#: [id number] Admission: 07/26/18 Attend Phys: Jeff Stevens MD Discharge: Date of : 30 Report #: [id number] 5. Discharge destination would be back home where he lives with his . He premorbidly utilized a cane. At this point, our goal is to get him independent at least at a walker level. 6. Expected therapy by discipline includes PT, OT and speech 1 hour per day each 5 days a week throughout the duration of the acute inpatient rehabilitation stay. <ELECTRONICALLY SIGNED> By: Jeff Stevens MD 08/08/18 [id number] Jeff Stevens MD /nt
[2018-08-08 11:52] VITALS: BP 131/66
--- NOTE | 2018-08-08 14:41 | NUR ---
PT. DISCHARGING TODAY TO HOME WITH [facility]. NOTIFIED ADM. LIASON AT [facility] OF DISCHARGE AND THEY WILL NOTIFY PT. OF TIME OF VISITS.
[2018-08-08 16:17] VITALS: BP 131/66
--- NOTE | 2018-08-08 17:23 | NUR ---
ASSUMED CARE AT APPROX 0715. PATIENT A/O X2. FORGETFUL. DENIES PAIN. C/O GERD, PRN FAMOTIDINE GIVEN. PATINENT UP X1 ASSIST GB AND WALKER. PARTICIPATED IN THERAPY. OUT TO TABLE FOR MEALS. DISCHARGED THIS DATE. PATIENT, HIS , AND HIS DAUGHTER PARTICIPATED IN FAMILY TRAINING. MEDICATIONS REVIEWED WITH FAMILY. PARAMETERS FOR BP MEDS DISCUSSED, PATIENT'S STATES THEY HAVE A HOME BLOOD PRESSURE CUFF, EDUCATED ON BP LOG. PRESCRIPTIONS SENT TO PATIENT'S HOME PHARMACY [facility]. SCRIPTS GIVEN TO PATIENT WITH MED INFO SHEETS. [facility] EDUCATION PROVIDED TO PATIENT AND SPOUSE, HANDOUTS PROVIDED. PATIENT'S FOLLOW UP APPOINTMENTS SCHEDULED WITH STAFF SUPERVISION. PATIENT LEFT UNIT APPROX 1645 WITH [employer] [employer].
[2018-08-09 15:06] LABS: GLOBULIN TOTAL 3.2 g/dL (2.2-3.9); M-SPIKE Not Observed g/dL (Not Observed)
== END 2018-08-08 16:45 | disposition home health service (06) | DRG 64 ==
LOC: ENTRNSPT 08-08 16:37
PROVIDERS: Nurse Practitioner; Psychiatry & Neurology Neurology; ADMIT Physical Medicine & Rehabilitation
DX: I63.9 Cerebral infarction, unspecified (principal); A41.9 Sepsis, unspecified organism; J96.01 Acute respiratory failure with hypoxia; J69.0 Pneumonitis due to inhalation of food and vomit; R40.20 Unspecified coma; R65.20 Severe sepsis without septic shock; I47.1 Supraventricular tachycardia; R13.10 Dysphagia, unspecified; I10 Essential (primary) hypertension; R53.1 Weakness; R41.9 Unspecified symptoms and signs involving cognitive functions and awareness; F41.9 Anxiety disorder, unspecified; R21 Rash and other nonspecific skin eruption; R53.81 Other malaise; R33.9 Retention of urine, unspecified; G62.9 Polyneuropathy, unspecified; Z85.51 Personal history of malignant neoplasm of bladder; Z85.46 Personal history of malignant neoplasm of prostate; Z88.0 Allergy status to penicillin; Z98.41 Cataract extraction status, right eye; Z98.42 Cataract extraction status, left eye; Z87.891 Personal history of nicotine dependence; Z82.3 Family history of stroke; Z82.49 Family history of ischemic heart disease and other diseases of the circulatory system
CPT/HCPCS: 10112

== ENCOUNTER 2018-08-12 04:03 | Emergency (ER) | payer OTHER, MEDICARE ==
[~2018-08-12] VITALS: Ht 175.3 cm; Wt 77.1 kg
[~2018-08-12 04:03] MED LIST changes: +ACIDOPHILUS1 EAC4 PO; +MELATONIN5 M1 PO; +PEPCID20 MG PO; +TOPROL XL25 MG PO; +VITAMIN B-12500 MCG PO
[2018-08-12 04:22] VITALS: BP 107/65
== END 2018-08-12 05:14 | disposition home or self-care (01) ==
LOC: ER 04:03
DX: T83.098A Other mechanical complication of other urinary catheter, initial encounter (principal); I10 Essential (primary) hypertension; K21.9 Gastro-esophageal reflux disease without esophagitis; N40.0 Benign prostatic hyperplasia without lower urinary tract symptoms; M81.0 Age-related osteoporosis without current pathological fracture; Z85.46 Personal history of malignant neoplasm of prostate; Z85.51 Personal history of malignant neoplasm of bladder; Z88.0 Allergy status to penicillin; Z87.891 Personal history of nicotine dependence; Z87.01 Personal history of pneumonia (recurrent); Y84.8 Other medical procedures as the cause of abnormal reaction of the patient, or of later complication, without mention of misadventure at the time of the procedure; Y92.89 Other specified places as the place of occurrence of the external cause

== ENCOUNTER → 2018-09-16 | Outpatient (CLI) | payer OTHER, MEDICARE | LOC: SPEECH 12:27 → RAD 12:27 | DX: R13.12 Dysphagia, oropharyngeal phase (principal) ==

== ENCOUNTER → 2018-11-18 | Outpatient (CLI) | payer OTHER, MEDICARE | LOC: RAD 10:22 | DX: R13.12 Dysphagia, oropharyngeal phase (principal) ==

== ENCOUNTER 2019-02-15 09:04 | Emergency (ER) | payer OTHER, MEDICARE ==
[~2019-02-15] VITALS: Ht 175.3 cm; Wt 72.6 kg
[2019-02-15 10:11] LABS: URINE BILIRUBIN NEGATIVE (Negative); URINE BLOOD NEGATIVE (Negative); URINE CLARITY CLEAR; URINE COLOR YELLOW; URINE GLUCOSE-RANDOM* NEGATIVE (Negative); URINE KETONES NEGATIVE (Negative); URINE LEUKOCYTES-REFLEX NEGATIVE (Negative); URINE NITRITE-REFLEX NEGATIVE (Negative); URINE PROTEIN (DIPSTICK) NEGATIVE (Negative); URINE UROBILINOGEN 0.2 E.U./dl (0.2-1.0)
[2019-02-15 10:13] LABS: ABSOLUTE NEUTROPHILS 5.5 thou/uL (1.4-8.2); BASOPHILS 0.7 % (0.0-2.0); EOSINOPHILS 0.9 % (0.0-3.0); HEMATOCRIT 36.3 % (42.0-52.0); HEMOGLOBIN 11.9 gm/dL (14.0-18.0); LYMPHOCYTES 11.2 % (24.0-44.0); MCH 30.3 pg (26.0-34.0); MCHC 32.7 g/dL (28.0-37.0); MCV 92.9 fL (80.0-100.0); MONOCYTES 10.3 % (1.0-8.0); PLATELET COUNT 262 thou/uL (150-400); POLYS 76.9 % (36.0-66.0); RBC 3.91 mil/uL (4.50-6.00); RDW 14.4 % (10.5-14.5); WBC 7.1 thou/uL (4.0-11.0)
[2019-02-15 10:16] LABS: POTASSIUM 3.8 mmol/L (3.5-5.1)
[2019-02-15 12:48] VITALS: BP 106/74
== END 2019-02-15 12:51 | disposition home or self-care (01) ==
LOC: ER 09:04
PROVIDERS: Emergency Medicine
DX: S01.01XA Laceration without foreign body of scalp, initial encounter (principal); S80.02XA Contusion of left knee, initial encounter; I10 Essential (primary) hypertension; K21.9 Gastro-esophageal reflux disease without esophagitis; M81.0 Age-related osteoporosis without current pathological fracture; N40.0 Benign prostatic hyperplasia without lower urinary tract symptoms; Z85.51 Personal history of malignant neoplasm of bladder; Z85.46 Personal history of malignant neoplasm of prostate; Z87.891 Personal history of nicotine dependence; Z88.0 Allergy status to penicillin; Z88.1 Allergy status to other antibiotic agents; Z91.81 History of falling; W18.39XA Other fall on same level, initial encounter; Y93.01 Activity, walking, marching and hiking; Y92.488 Other paved roadways as the place of occurrence of the external cause; Y99.8 Other external cause status